=== PATIENT | female | born 1950 | race Caucasian/White ===

== ENCOUNTER 2016-08-26 17:46 | Inpatient (IN) | payer MEDICARE ==
[~2016-08-26] VITALS: Ht 152.4 cm; Wt 40.0 kg
[~2016-08-26 17:46] MED LIST: CARB1SUS J-TUBE; CELE200C PO; HUMI40KI SQ; OYST500T77 PO
--- NOTE | 2016-08-26 17:51 | PD ---
HPI Chief Complaint: upper and lower extremity weakness progressive over the last 2 weeks. 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 Patient was seen by Dr. Leon. Patient sustained a fall 3 months ago, and was seen at [facility], and was transported to [address] [place] [address]. At that time the patient was found to have a C2 fracture which was unclear if it was chronic or acute. At discharge from the hospital 2 weeks ago the patient was able to move all limbs and transfer to rehabilitation walking with a walker. Then 2 weeks ago patient had a "another spell", and can't move her arms or legs. Patient was evaluated by Dr. Leon and the physician medical claims assistant who recommended coming to the emergency department for further evaluation for her change in status. Patient now has weakness of both upper extremities and is unable to grasp, but is noted to be able to wiggle her toes. She is otherwise weak in all extremities. Patient is alert and oriented 4 but is a very soft talker and slow to answer due to her Parkinson's. Patient has bowel or bladder incontinence. Patient has a duepa pump which is for her Parkinson's disease. Patient has no known drug allergies. PFSH Past Medical History Arthritis: Yes (rheumatoid) Blood Disorders: No Cancer: No Cardiovascular Problems: No Endocrine: No Genitourinary: No Immune Disorder: Yes Musculoskeletal: Yes Neurologic: Yes Parkinson's Disease: Yes Psychiatric: No Respiratory: No Past Surgical History Joint Replacement: Yes (lt knee) Other Surgery: Yes (peg tube meds only) Social History Alcohol Use: No Tobacco Use: No Substance Use: No Allergies-Medications (Allergen,Severity, Reaction): Coded Allergies: No Known Allergies (Unverified , 04/14/16) Reported Meds & Prescriptions Reported Meds & Active Scripts Active Reported Dulcolax DR (Bisacodyl) 5 Mg Tabdr 5 Mg PO DAILY PRN Famotidine 20 Mg Tab 40 Mg PO HS Tylenol (Acetaminophen) 325 Mg Tab 650 Mg PO Q6H PRN Zinc Sulfate 220 Mg Tab 220 Mg PO DAILY Vitamin C (Ascorbic Acid) 500 Mg Tab 500 Mg PO DAILY Sinemet Cr (Carbidopa-Levodopa ER) 25-100 Mg Tab 1-2 Tab PO HS Loperamide (Loperamide HCl) 2 Mg Cap 2 Mg PO Q8HR PRN [place] (Hydrocodone-Acetaminophen) 5-325 mg Tab 1 Tab PO Q12HR PRN Valium (Diazepam) 2 Mg Tab 2-4 Mg PO BID PRN Vesicare (Solifenacin) 5 Mg Tab 5 Mg PO DAILY Mg217 Psoriasis Multi-Symptom Topical (Kingfisher Tar Extract) 2% Oint 1 Applic TOPICAL DAILY Stool Softener (Docusate Sodium) 100 Mg Cap 100 Mg PO DAILY PRN Fosamax (Alendronate Sodium) 70 Mg Tab 70 Mg PO WEEKLY Oyster-Vishnu 500 (Calcium) 500 Mg Tab 1,000 Mg PO DAILY Celebrex (Celecoxib) 200 Mg Cap 200 Mg PO BID Humira 2-Pack Inj (Adalimumab 2-Pack Inj) 40 Mg/0.8 Ml Syr 40 Mg SQ WEEKLY Duopa Enteral Infusion (Carbidopa-Levodopa Enteral Infusion) 4.63-20 Mg/Ml Susp 4.63-20 Mg J-TUBE DAILY Review of Systems Except as stated in HPI: all other systems reviewed are Neg General / Constitutional: No: Fever Eyes: No: Visual changes HENT: No: Headaches Cardiovascular: No: Chest Pain or Discomfort Respiratory: No: Shortness of Breath Gastrointestinal: No: Abdominal Pain Genitourinary: No: Dysuria Musculoskeletal: Positive: Limited ROM, No: Pain Skin: No Rash Neurologic: Positive: Weakness, Ataxia, Incontinence (chronically.), No: Paresthesia, Seizures, Sensory Disturbance Psychiatric: No: Depression Endocrine: No: Polydipsia Hematologic/Lymphatic: No: Easy Bruising Physical Exam Narrative GENERAL: Patient is alert and oriented and in no obvious distress. Patient has severe dystonic head posture to the left. She is wearing a soft collar. SKIN: Warm and dry. Normal color. Normal turgor. Lower extremities are somewhat cool to touch. Patient has a stage II decubitus ulcer present obvious signs of cellulitis. Wound culture is obtained. HEAD: Atraumatic. Normocephalic. EYES: Pupils equal and round. No scleral icterus. No injection or drainage. ENT: No nasal bleeding or discharge. Mucous membranes pink and moist. NECK: Trachea midline. Severe neck flexion. Patient is unable to move her neck on her own. This is chronic.. CARDIOVASCULAR: Regular rate and rhythm. No murmurs gallops or rubs. RESPIRATORY: No accessory muscle use. Clear to auscultation. Breath sounds equal bilaterally. GASTROINTESTINAL: Abdomen soft, non-tender, nondistended. Hepatic and splenic margins not palpable. G-tube is placed and appears in good condition. MUSCULOSKELETAL: Extremities without clubbing, cyanosis, or edema. No obvious deformities. NEUROLOGICAL: Awake and alert. No obvious cranial nerve deficits. Motor grossly within normal limits. Patient has no motion of bilateral upper extremities. States she has normal sensation but cannot move them. Lower extremities patient is able to wiggle her toes and push against pressure with plantar flexion 2 over 5. Normal speech. Patient is difficult to understand due to her Parkinson's disease. Patient has no obvious contractures or cogwheeling. She cannot lift arms and legs against gravity. PSYCHIATRIC: Appropriate mood and affect; insight and judgment normal. Data Data Last Documented VS Vital Signs Date Time Temp Pulse Resp B/P Pulse Ox O2 Delivery O2 Flow Rate FiO2 08/26/16 18:00 16 96 Room Air 08/26/16 17:57 97.9 81 128/[address] Cerv Spine W/O Contrast (08/26/16 18:17) Complete Blood Count With Diff (08/26/16 18:20) Comprehensive Metabolic Panel (08/26/16 18:20) Prothrombin Time / Inr (Pt) (08/26/16 18:20) Act Partial Throm Time (Ptt) (08/26/16 18:20) Magnesium (Mg) (08/26/16 18:20) Urinalysis - C+S If Indicated (08/26/16 18:20) Blood Culture (08/26/16 18:20) Wound Culture And Gram Stain (08/26/16 18:20) Lactic Acid (08/26/16 18:20) Mri C Spine W&W/O Contrast (08/26/16 ) Mri Screening Spine W&W/O Cont (08/26/16 ) Gadodiamide Pf Inj (Omniscan Pf Inj) (08/26/16 21:42) Labs Laboratory Tests Test 08/26/16 18:28 White Blood Count 7.5 TH/MM3 Red Blood Count 3.34 MIL/MM3 Hemoglobin 11.7 GM/DL Hematocrit 33.2 % Mean Corpuscular Volume 99.2 FL Mean Corpuscular Hemoglobin 35.1 PG Mean Corpuscular Hemoglobin 35.4 % Concent Red Cell Distribution Width 14.5 % Platelet Count 324 TH/MM3 Mean Platelet Volume 7.4 FL Neutrophils (%) (Auto) 56.8 % Lymphocytes (%) (Auto) 32.7 % Monocytes (%) (Auto) 8.0 % Eosinophils (%) (Auto) 1.9 % Basophils (%) (Auto) 0.6 % Neutrophils # (Auto) 4.2 TH/MM3 Lymphocytes # (Auto) 2.4 TH/MM3 Monocytes # (Auto) 0.6 TH/MM3 Eosinophils # (Auto) 0.1 TH/MM3 Basophils # (Auto) 0.0 TH/MM3 CBC Comment DIFF FINAL Differential Comment Prothrombin Time 12.2 SEC Prothromb Time International 1.1 RATIO Ratio Activated Partial 28.7 SEC Thromboplast Time Sodium Level 142 MEQ/L Potassium Level 4.0 MEQ/L Chloride Level 107 MEQ/L Carbon Dioxide Level 26.1 MEQ/L Anion Gap 9 MEQ/L Blood Urea Nitrogen 23 MG/DL Creatinine 0.44 MG/DL Estimat Glomerular Filtration 142 ML/MIN Rate Random Glucose 111 MG/DL Lactic Acid Level 1.6 mmol/L Calcium Level 7.9 MG/DL Magnesium Level 2.0 MG/DL Total Bilirubin 0.6 MG/DL Aspartate Amino Transf 17 U/L (AST/SGOT) Alanine Aminotransferase 7 U/L (ALT/SGPT) Alkaline Phosphatase 80 U/L Total Protein 5.5 GM/DL Albumin 2.4 GM/DL Last 24 hours Impressions [address] 08/26/167 Signed Impressions: Service Date/Time: Friday, August 26, 2016 18:36 - CONCLUSION: 1. Chronic appearing fracture through the upper dens with displacement of the fragment. 2. There are degenerative changes involving atlantoaxial joint normal likely secondary to pannus formation and rheumatoid arthritis with erosions and sclerosis. 3. Suboptimal exam due to the patient's kyphosis scoliosis and rotation. 4. Degenerative disc and degenerative joint changes. Enrique Damon MD [facility] Medical Decision Making Medical Screen Exam Complete: Yes Emergency Medical Condition: Yes Differential Diagnosis Patient with severe Parkinson's and neck dystonia with history of C2 fracture with upper and lower extremity weakness. Narrative Course Patient is medically stable at time of exam. Call was placed to Dr. Griffin to attempt to discuss the patient. Patient is discussed with Dr. Bradshaw. Patient was discussed with Dr. Griffin, who recommended a CT of the cervical spine as well as MRI with and without contrast of the cervical spine and Whole spine. Labs ordered including CBC, CMP, lactic acid, and wound culture from decubitus ulcers sent. Labs are essentially unremarkable. Wound cultures are pending. Last [address] Impressions [address] 08/26/167 Signed Impressions: Service Date/Time: Friday, August 26, 2016 18:36 - CONCLUSION: 1. Chronic appearing fracture through the upper dens with displacement of the fragment. 2. There are degenerative changes involving atlantoaxial joint normal likely secondary to pannus formation and rheumatoid arthritis with erosions and sclerosis. 3. Suboptimal exam due to the patient's kyphosis scoliosis and rotation. 4. Degenerative disc and degenerative joint changes. Enrique Damon MD MRI is still pending. [address] discussed with Dr[address] Griffin, the neurosurgeon and CT results are discussed. Dr. Griffin feels the patient needs to be admitted but is unsure that he couldn't do anything surgically for this patient, that she may actually be qualified for palliative care at this point based on the CT findings. He asked me to call the hospitalist to see if they will admit the patient, but stated that it they declined he would admit the patient. 2150 hrs. patient is discussed with Dr. Reeder who agrees to admit the patient to observation with consult to Dr. Griffin regarding her neuro surgical status. 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
[2016-08-26 17:57] VITALS: BP 128/90; PULSE 81; RESP 19; TEMP 97.9; O2SAT 97
[2016-08-26 18:37] LABS: AUTOMATED NEUTROPHIL # 4.2 TH/MM3 (1.8-7.7); BASOPHIL % 0.6 % (0.0-2.0); EOSINOPHIL # 0.1 TH/MM3 (0-0.4); EOSINOPHIL % 1.9 % (0.0-4.0); HEMATOCRIT 33.2 % (35.0-46.0); HEMO FLAGS DIFF FINAL; LYMPH % 32.7 % (9.0-44.0); LYMPHOCYTE # 2.4 TH/MM3 (1.0-4.8); MEAN CELL VOLUME 99.2 FL (80.0-100.0); MEAN CORPUSCULAR HEMOGLOBIN 35.1 PG (27.0-34.0); MEAN CORPUSCULAR HGB CONC 35.4 % (32.0-36.0); NEUT % 56.8 % (16.0-70.0); PLATELET COUNT 324 TH/MM3 (150-450); RED BLOOD COUNT 3.34 MIL/MM3 (4.00-5.30); RED CELL DISTRIBUTION WIDTH 14.5 % (11.6-17.2); WHITE BLOOD COUNT 7.5 TH/MM3 (4.0-11.0)
[2016-08-26 18:50] LABS: APTT (PATIENT) 28.7 SEC (24.3-30.1); INTERNATIONAL NORMALIZED RATIO 1.1 RATIO; PROTHROMBIN TIME - PATIENT 12.2 SEC (9.8-11.6)
[2016-08-26] MEDS ORDERED: TYLE325T PO (18:53)
[2016-08-26] MEDS ORDERED: VESI5TAB PO (18:53)
[2016-08-26] MEDS ORDERED: NORC5TAB PO (18:53)
[2016-08-26] MEDS ORDERED: DIAZ2 PO (18:53)
[2016-08-26] MEDS ORDERED: FOSA70TA PO (18:53)
[2016-08-26] MEDS ORDERED: STOO100C PO (18:53)
[2016-08-26] MEDS ORDERED: SINE25TA2 PO (18:53)
[2016-08-26] MEDS ORDERED: FAMO20TA2 PO (18:53)
[2016-08-26] MEDS ORDERED: ZINC220T PO (18:53)
[2016-08-26] MEDS ORDERED: VITA500T PO (18:53)
[2016-08-26] MEDS ORDERED: LOPE2CAP PO (18:53)
[2016-08-26] MEDS ORDERED: [UNRECOGNIZED DRUG - CODE] TOPICAL (18:53)
[2016-08-26] MEDS ORDERED: DULC5TAB PO (18:53)
[2016-08-26 19:02] LABS: ANION GAP 9 MEQ/L (5-15); AST (GOT) 17 U/L (15-37); BICARBONATE 26.1 MEQ/L (21.0-32.0); BLOOD UREA NITROGEN 23 MG/DL (7-18); CHLORIDE 107 MEQ/L (98-107); GLOMERULAR FILTRATION RATE 142 ML/MIN (>89); SODIUM (NA) 142 MEQ/L (136-145)
[2016-08-26 19:05] LABS: ALKALINE PHOSPHATASE 80 U/L (45-117); ALT (GPT) 7 U/L (10-53); TOTAL BILIRUBIN ADULT 0.6 MG/DL (0.2-1.0)
--- NOTE | 2016-08-26 21:10 | RADRPT ---
EXAM DATE/TIME: 08/26/2016 18:36 [facility] COMPARISON: No previous studies available for comparison. INDICATIONS : Bilateral upper and lower extremity weakness. RADIATION DOSE: 34.23 CTDIvol (mGy) MEDICAL HISTORY : Parkinson's. Rheumatoid arthritis. Spondylosis. SURGICAL HISTORY : None. ENCOUNTER: Initial ACUITY: 1 day PAIN SCALE: 7/10 LOCATION: neck TECHNIQUE: Volumetric scanning of the cervical spine was performed. Multiplanar reconstructions in the sagittal, coronal and oblique axial planes were performed. Using automated exposure control and adjustment o f the mA and/or kV according to patient size, radiation dose was kept as low as reasonably achievable to obtain optimal diagnostic quality images. FINDINGS: The patient is extremely kyphotic and rotated with the head tilted to the left limiting visualization with severe obloquy of the structures near the base of the skull. There is a chronic appearing fract ure through the upper dens with displacement of the fragment to the left and located anterior to the lower portion of the C2 vertebral body. Diffuse prominence of the soft tissues which could indicate p annus formation. There are degenerative changes and erosions. The C2 vertebral body is rotated approx imately 45 with respect to the C1 vertebral body. The skull base appears grossly intact. There are d egenerative disc changes at the C4 to 5 through C6-7 levels with disc space narrowing hypertrophic ch wilfredo. There is moderate osteopenia. The head is rotated making visualization of skull base difficult. The other vertebra appear grossly intact. There are degenerative changes involving the facet joints. CONCLUSION: 1. Chronic appearing fracture through the upper dens with displacement of the fragment. 2. There are degenerative changes involving atlantoaxial joint normal likely secondary to pannus form ation and rheumatoid arthritis with erosions and sclerosis. 3. Suboptimal exam due to the patient's kyphosis scoliosis and rotation. 4. Degenerative disc and degenerative joint changes. Enrique Damon MD on August 26, 2016 at 21:00 Board Certified Radiologist. This report was verified electronically.
[2016-08-26] MEDS ORDERED: GADODIAMIDE PF 287 MG/ML 5 ML VIAL (for RAD MRI) IV ONE (21:42)
[2016-08-26] MEDS ORDERED: DIAZEPAM 2 MG TAB PO PRN (22:15)
[2016-08-26] MEDS ORDERED: NALOXONE HCL 0.4 MG/ML AMP IV PRN (22:15)
[2016-08-26] MEDS ORDERED: SODIUM CHLORIDE 0.9% FLUSH 10 ML FLUSH IV FLUSH PRN (22:15)
[2016-08-26] MEDS ORDERED: ACETAMINOPHEN/HYDROcodone 325 MG/5 MG TAB PO PRN (22:15)
[2016-08-26] MEDS ORDERED: DOCUSATE SODIUM 100 MG CAP PO PRN (22:15)
[2016-08-26] MEDS ORDERED: BISACODYL EC 5 MG TABEC PO PRN (22:15)
--- NOTE | 2016-08-26 22:34 | RADRPT ---
EXAM DATE/TIME: 08/26/2016 20:47 [facility] COMPARISON: MRI CERVICAL SPINE W/O CONTRAST, April 16, 2016, 10:50. CT CERVICAL SPINE W/O CONTRAST, August 26, 2016, 18:36. INDICATIONS : Myelopathy. Abnormal cervical spine CT demonstrating a chronic appearing fracture of the dens. CONTRAST: 8 cc Omniscan (gadodiamide) IV MEDICAL HISTORY : Parkinson's disease rheumatoid arthritis. SURGICAL HISTORY : Left knee. ENCOUNTER: Subsequent ACUITY: 1 day PAIN SCORE: 8/10 LOCATION: neck TECHNIQUE: Multiplanar, multisequence MRI examination of the cervical spine was performed. FINDINGS: The patient is kyphotic, scoliotic and rotated with the head tilted to the left limiting visualizatio n. VERTEBRAE: The known fracture deformity of the dens seen on the CT is not well-visualized due to the kyphosis, s coliosis and rotation of the patient. The other vertebral bodies appear intact with no definite marro w edema. There is prominent soft tissue surrounding the dens which could indicate pannus likely secon dawna to the patient's known rheumatoid arthritis. ALIGNMENT: No evidence of subluxation. DISCS: Degenerative disc changes are again noted at C4-5, C5-6 and C6-7 levels with desiccation, disc space narrowing and hypertrophic change with spurring. CORD: Normal configuration and signal. POST FOSSA: The cerebellar tonsils are normal in position. POST-CONTRAST: No abnormal areas of enhancement are seen. C2-C3: The thecal sac has a normal configuration. There is no evidence of disc herniation or spinal canal stenosis. The neural foramina are patent bilaterally. C3-C4: The thecal sac has a normal configuration. There is no evidence of disc herniation or spinal canal s tenosis. The neural foramina are patent bilaterally. C4-C5: There is a mild disc osteophyte complex with mass effect on the anterior thecal sac and no definite m ass effect upon the cord. The neural foramina appear patent. C5-C6: There is a mild disc osteophyte complex with mass effect on the anterior thecal sac and no definite m ass effect upon the cord. The neural foramina appear patent. C6-C7: There is a mild disc osteophyte complex with mild mass effect on the anterior thecal sac and no defin ite mass effect upon the cord. C7-T1: The thecal sac has a normal configuration. There is no evidence of disc herniation or spinal canal s tenosis. The neural foramina are patent bilaterally. CONCLUSION: 1. The known fracture deformity of the dens seen on CT is not well-visualized on this exam due to the rotation, kyphosis and scoliosis. 2. The other vertebral bodies appear intact. 3. Degenerative disc change greatest at the C4-5, C5-6 and C6-7 levels with disc osteophyte complexes with no definite mass effect on the cord. Enrique Damon MD on August 26, 2016 at 22:24 Board Certified Radiologist. This report was verified electronically.
--- NOTE | 2016-08-26 22:43 | HHI.HP ---
[facility] Non[facility]Staff Admission Diagnosis New upper and lower Extremity weakness/Parkinsons Diagnoses: Chief Complaint: Unable to move extremities 2 weeks Travel History International Travel<30 Days: No Contact w/Intl Traveler <30 Da: No Traveled to Known Affected Are: No History of Present Illness This a 66-year-old female patient with a past medical history which includes pulmonary fibrosis, cervical dystonia, spasmodic torticollis, Parkinson's disease rheumatoid arthritis and hypertension. Patient sustained a fall 3 months ago, and was seen at [facility], and was transported to [facility]. At that time the patient was found to have a C2 fracture which was unclear if it was chronic or acute. At discharge from the hospital 2 weeks ago the patient was able to move all limbs and transfer to rehabilitation walking with a walker. Then 2 weeks ago patient had a "another spell", and can't move her arms or legs. Patient was evaluated by Dr. Leon and the physician senior care assistant who recommended coming to the emergency department for further evaluation for her change in status, there is concern regarding spinal cord injury. Patient now has weakness of both upper extremities and is unable to grasp or left bilateral arms or legs against gravity. Patient is alert and oriented but is a very soft talker and slow to answer. Patient only able to provide a minimal verbal information therefore information gathered from patient as well as prior charting. Of note Patient has bowel or bladder incontinence. Patient has a duepa pump which is for her Parkinson's disease. Patient has a c-collar in place Review of Systems ROS Limitations: Poor Historian Except as stated in HPI: all other systems reviewed are Neg Past Family Social History Past Medical History Rheumatoid arthritis Pulmonary fibrosis Past Surgical History Left knee replacement PEG/J tube placement for [place]-pump Reported Medications Dulcolax DR (Bisacodyl) 5 Mg Tabdr 5 Mg PO DAILY PRN Famotidine 20 Mg Tab 40 Mg PO HS Tylenol (Acetaminophen) 325 Mg Tab 650 Mg PO Q6H PRN Zinc Sulfate 220 Mg Tab 220 Mg PO DAILY Vitamin C (Ascorbic Acid) 500 Mg Tab 500 Mg PO DAILY Sinemet Cr (Carbidopa-Levodopa ER) 25-100 Mg Tab 1-2 Tab PO HS Loperamide (Loperamide HCl) 2 Mg Cap 2 Mg PO Q8HR PRN Limon (Hydrocodone-Acetaminophen) 5-325 mg Tab 1 Tab PO Q12HR PRN Valium (Diazepam) 2 Mg Tab 2-4 Mg PO BID PRN Vesicare (Solifenacin) 5 Mg Tab 5 Mg PO DAILY Mg217 Psoriasis Multi-Symptom Topical ([place] Tar Extract) 2% Oint 1 Applic TOPICAL DAILY Stool Softener (Docusate Sodium) 100 Mg Cap 100 Mg PO DAILY PRN Fosamax (Alendronate Sodium) 70 Mg Tab 70 Mg PO WEEKLY Oyster-Vishnu 500 (Calcium) 500 Mg Tab 1,000 Mg PO DAILY Celebrex (Celecoxib) 200 Mg Cap 200 Mg PO BID Humira 2-Pack Inj (Adalimumab 2-Pack Inj) 40 Mg/0.8 Ml Syr 40 Mg SQ WEEKLY Duopa Enteral Infusion (Carbidopa-Levodopa Enteral Infusion) 4.63-20 Mg/Ml Susp 4.63-20 Mg J-TUBE DAILY Allergies: Coded Allergies: No Known Allergies (Unverified , 04/14/16) Active Ordered Medications Current Medications Medications (Trade) Dose Ordered Sig/Judson Route Start Time Stop Time Status Last Admin (NS Flush) 2 ml UNSCH PRN IV FLUSH 08/26/16 22:15 (NS Flush) 2 ml BID IV FLUSH 08/27/16 09:00 (Narcan Inj) 0.4 mg UNSCH PRN IV 08/26/16 22:15 (Tylenol) 650 mg Q6H PRN PO 08/26/16 22:15 (Vitamin C) 500 mg DAILY PO 08/27/16 09:00 (Dulcolax Ec) 5 mg DAILY PRN PO 08/26/16 22:15 (Oscal) 1,000 mg DAILY PO 08/27/16 09:00 (Valium) 2 mg BID PRN PO 08/26/16 22:15 (Colace) 100 mg DAILY PRN PO 08/26/16 22:15 (Pepcid) 40 mg HS PO 08/27/16 21:00 (Limon 5-325 Mg) 1 tab Q12HR PRN PO 08/26/16 22:15 (Zinc Sulfate) 220 mg DAILY PO 08/27/16 09:00 Non-Formulary Medication DAILY J-TUBE 08/27/16 09:00 UNV (Sinemet Cr 50-200 Mg) 0.5 tab HS PO 08/27/16 21:00 (Detrol La) 2 mg DAILY PO 08/27/16 09:00 Family History Mother alive at 89 years old has history of colon cancer Social History Used to smoke cigarettes but quit in 1980s. Denies any alcohol abuse or drug abuse. Physical Exam Vital Signs Vital Signs Date Time Temp Pulse Resp B/P Pulse Ox O2 Delivery O2 Flow Rate FiO2 08/26/16 18:00 16 96 Room Air 08/26/16 17:57 97.9 81 19 128/90 97 Physical Exam GENERAL: This is an 66 year old female patient who appears older than stated age. very soft talker and slow to answer. C collar in place HEAD: Atraumatic. Normocephalic. No temporal or scalp tenderness. EYES: EOMI. No scleral icterus. No injection or drainage. NECK: Difficult to assess c-collar in place. Evident torticollis with chin nearly touching chest and head deviated towards the left CARDIOVASCULAR: Regular rate and rhythm without murmurs, gallops, or rubs. RESPIRATORY: Clear to auscultation. Breath sounds equal bilaterally. No wheezes , rales, or rhonchi. GASTROINTESTINAL: Abdomen soft, non-tender, nondistended. MUSCULOSKELETAL: Extremities without clubbing, cyanosis, or edema. No calf tenderness. Unable to move bilateral upper or lower extremities also unable to hold extremities against gravity NEUROLOGICAL: Awake and alert. Unable to move bilateral upper or lower extremities also unable to hold extremities against gravity. Soft whispered speech. Laboratory Laboratory Tests Test 08/26/16 18:28 White Blood Count 7.5 Red Blood Count 3.34 Hemoglobin 11.7 Hematocrit 33.2 Mean Corpuscular Volume 99.2 Mean Corpuscular Hemoglobin 35.1 Mean Corpuscular Hemoglobin 35.4 Concent Red Cell Distribution Width 14.5 Platelet Count 324 Mean Platelet Volume 7.4 Neutrophils (%) (Auto) 56.8 Lymphocytes (%) (Auto) 32.7 Monocytes (%) (Auto) 8.0 Eosinophils (%) (Auto) 1.9 Basophils (%) (Auto) 0.6 Neutrophils # (Auto) 4.2 Lymphocytes # (Auto) 2.4 Monocytes # (Auto) 0.6 Eosinophils # (Auto) 0.1 Basophils # (Auto) 0.0 CBC Comment DIFF FINAL Differential Comment Prothrombin Time 12.2 Prothromb Time International 1.1 Ratio Activated Partial 28.7 Thromboplast Time Sodium Level 142 Potassium Level 4.0 Chloride Level 107 Carbon Dioxide Level 26.1 Anion Gap 9 Blood Urea Nitrogen 23 Creatinine 0.44 Estimat Glomerular Filtration 142 Rate Random Glucose 111 Lactic Acid Level 1.6 Calcium Level 7.9 Magnesium Level 2.0 Total Bilirubin 0.6 Aspartate Amino Transf 17 (AST/SGOT) Alanine Aminotransferase 7 (ALT/SGPT) Alkaline Phosphatase 80 Total Protein 5.5 Albumin 2.4 Date/Time Procedure Status Source Growth 08/26/16 18:28 Gram Stain Received Wound Buttock Pending 08/26/16 18:28 Wound Culture Received Wound Buttock Pending 08/26/16 18:28 Aerobic Blood Culture Received Blood Peripheral Pending 08/26/16 18:28 Anaerobic Blood Culture Received Blood Peripheral Pending Result Diagram: 08/26/16182708/26/161827 Imaging Last Impressions Cervical Spine CT 08/26/161816 Signed Impressions: Service Date/Time: Friday, August 26, 2016 18:36 - CONCLUSION: 1. Chronic appearing fracture through the upper dens with displacement of the fragment. 2. There are degenerative changes involving atlantoaxial joint normal likely secondary to pannus formation and rheumatoid arthritis with erosions and sclerosis. 3. Suboptimal exam due to the patient's kyphosis scoliosis and rotation. 4. Degenerative disc and degenerative joint changes. Enrique Damon MD Assessment and Plan Assessment and Plan This a 66-year-old female patient with a past medical history which includes pulmonary fibrosis, cervical dystonia, spasmodic torticollis, Parkinson's disease rheumatoid arthritis and hypertension. Patient sustained a fall 3 months ago, and was seen at [facility], and was transported to [facility]. At that time the patient was found to have a C2 fracture which was unclear if it was chronic or acute. At discharge from the hospital 2 weeks ago the patient was able to move all limbs and transfer to rehabilitation walking with a walker. Then 2 weeks ago patient had a "another spell", and can't move her arms or legs. Acute neurological deficit Cervical spine CT reveals 1. Chronic appearing fracture through the upper dens with displacement of the fragment. 2. There are degenerative changes involving atlantoaxial joint normal likely secondary to pannus formation and rheumatoid arthritis with erosions and sclerosis. 3. Suboptimal exam due to the patient's kyphosis scoliosis and rotation. 4. Degenerative disc and degenerative joint changes. Cervical spine MRI reveals dependent fracture deformity of the dens seen in CT is not well visualized on this exam due to rotation kyphosis and scoliosis. The vertebral bodies appear intact. Degenerative disc change in greatest at C4 to C5, CA 5 to C6 and C6 to C7 levels with disc osteophyte complexes with no definitive mass effect on the cord 2130 hrs. ER provider discussed with Dr. Griffin, the neurosurgeon and CT results are discussed. Dr. Griffin feels the patient needs to be admitted but is unsure that he couldn't do anything surgically for this patient, that she may actually be qualified for palliative care at this point based on the CT findings. Continue c-collar Consult palliative care Cervical Dystonia with Intractable Neck Pain/Spasms: secondary to advanced Parkinson's disease, on chronic Sinemet tx and has duopa pump. Parkinson's Disease: chronic, the patient has a Carbidopa-Levodopa infusion pump , continue. Rheumatoid Arthritis: chronic, continue patient's Celebrex. Pulmonary Fibrosis: O2 as needed. Patient stable on room air. DVT Prophylaxis: SCDs and lovenox CODE STATUS: Full code Discussed with a provider, nursing inpatient Written by Edel Collins, acting as scribe for Dr. Reeder on 08/27/16 at 2243. This note was transcribed by scribe [ Edel Collins]. I, Dr. Alec Reeder personally performed the history, physical exam, and medical decision making; and confirmed the accuracy of the information in the transcribed note. Authenticated by Dr. Alec Reeder on 08/27/16 at 2243. Edel Collins Aug 26, 2016 22:43 Alec Reeder MD September 15, 2016 04:46
--- NOTE | 2016-08-26 23:21 | RADRPT ---
EXAM DATE/TIME: 08/26/2016 20:47 [facility] COMPARISON: SPINE LUMBAR LTD (AP & LAT), April 17, 2016, 11:25. MRI CERVICAL SPINE W & W/O CONTRAST, August, 20:47. SPINE THORACIC AP/LAT/SW (3VW), April 17, 2016, 11:24. INDICATIONS : Myelopathy. CONTRAST: 8 cc Omniscan (gadodiamide) IV MEDICAL HISTORY : Parkinson's. SURGICAL HISTORY : Left knee. ENCOUNTER: Subsequent ACUITY: 1 day PAIN SCORE: 8/10 LOCATION: neck TECHNIQUE: Screening MRI of the entire spinal axis was performed in the sagittal and axial planes. FINDINGS: There is a moderate scoliosis as well as kyphosis. Diffuse degenerative disc changes are noted with d isc space narrowing, desiccation and discogenic edema throughout the endplates. There is a mild retro listhesis of T11 on T12 with several millimeters. Anterior extradural defects are noted on the sagitt al images at the L3-4 and L4-5 levels. There are rounded marrow signal abnormalities in the T6 and T7 vertebral bodies which demonstrate ring enhancement after gadolinium administration. The T11 and T12 vertebral bodies are abnormal and demonstrate marrow edema an ill-defined low signal which a represe nt fracture deformities. The axial images demonstrate an annular disc bulge at the T4-5 level with flattening of the anterior thecal sac and no mass effect upon the cord. CONCLUSION: 1. Marrow abnormalities involving the T11 and T12 vertebral bodies representing compression fracture deformities of indeterminate age. 2. Rounded marrow abnormalities in the T6 and T7 vertebral bodies with ring enhancement. These are no nspecific and could represent Schmorl's nodes versus possible metastasis.3. Diffuse degenerative disc changes with scoliosis and kyphosis. Enrique Damon MD on August 26, 2016 at 23:04 Board Certified Radiologist. This report was verified electronically.
[2016-08-27] VITALS (7 sets, daily range): BP systolic 116–138; BP diastolic 68–85; PULSE 68–91; RESP 16–19; TEMP 97.8–98.4; O2SAT 95–98
[2016-08-27] MEDS ORDERED: LEVODOPA/CARBIDOPA 1 TAB TABCR PO PRN (01:45)
[2016-08-27] MEDS: SODIUM CHLORIDE 0.9% FLUSH 10 ML FLUSH IV FLUSH SCH ×2 (03:03→21:44)
[2016-08-27] MEDS ORDERED: LEVODOPA J-TUBE SCH (05:00)
[2016-08-27] MEDS ORDERED: CARBIDOPA J-TUBE SCH (05:00)
[2016-08-27 07:16] LABS: AUTOMATED NEUTROPHIL # 3.1 TH/MM3 (1.8-7.7); BASOPHIL % 0.4 % (0.0-2.0); EOSINOPHIL # 0.1 TH/MM3 (0-0.4); EOSINOPHIL % 2.1 % (0.0-4.0); HEMATOCRIT 32.5 % (35.0-46.0); HEMO FLAGS DIFF FINAL; LYMPH % 42.1 % (9.0-44.0); LYMPHOCYTE # 2.8 TH/MM3 (1.0-4.8); MEAN CELL VOLUME 100.5 FL (80.0-100.0); MEAN CORPUSCULAR HEMOGLOBIN 34.4 PG (27.0-34.0); MEAN CORPUSCULAR HGB CONC 34.2 % (32.0-36.0); NEUT % 46.4 % (16.0-70.0); PLATELET COUNT 289 TH/MM3 (150-450); RED BLOOD COUNT 3.23 MIL/MM3 (4.00-5.30); RED CELL DISTRIBUTION WIDTH 14.8 % (11.6-17.2); WHITE BLOOD COUNT 6.7 TH/MM3 (4.0-11.0)
[2016-08-27 07:26] LABS: POTASSIUM 3.8 MEQ/L (3.5-5.1)
--- NOTE | 2016-08-27 08:44 | HHI.PR ---
Subjective Remarks Follow-up for acute neurological deficit, C2 fracture. The patient is requesting her Sinemet be restarted. She is normally on a carbidopalevodopa pump, however she does not have the medication with her and no one is available to provide this medication to the pharmacy. She states her son is in the hospital. Discussed with pharmacy, plan to give the patient by mouth medications, patient reports no difficulty swallowing. The patient has continued bilateral upper extremity paralysis and bilateral lower extremity weakness. She denies any pain. Denies any other medical complaints. Vital signs reviewed, stable. Objective Vitals Vital Signs Date Time Temp Pulse Resp B/P Pulse Ox O2 Delivery O2 Flow Rate FiO2 08/27/16 08:28 74 19 128/83 95 08/27/16 06:00 98.4 68 16 117/68 97 08/26/16 18:00 16 96 Room Air 08/26/16 17:57 97.9 81 19 128/90 97 Result Diagram: 08/27/16 0622 08/27/1622 Imaging Last Impressions Cervical Spine CT 08/26/16 1817 Signed Impressions: Service Date/Time: Friday, August 26, 2016 18:36 - CONCLUSION: 1. Chronic appearing fracture through the upper dens with displacement of the fragment. 2. There are degenerative changes involving atlantoaxial joint normal likely secondary to pannus formation and rheumatoid arthritis with erosions and sclerosis. 3. Suboptimal exam due to the patient's kyphosis scoliosis and rotation. 4. Degenerative disc and degenerative joint changes. Enrique Damon MD Entire Spine MRI 08/26/16 0000 Signed Impressions: Service Date/Time: Friday, August 26, 2016 20:47 - CONCLUSION: 1. Marrow abnormalities involving the T11 and T12 vertebral bodies representing compression fracture deformities of indeterminate age. 2. Rounded marrow abnormalities in the T6 and T7 vertebral bodies with ring enhancement. These are nonspecific and could represent Schmorl's nodes versus possible metastasis. 3. Diffuse degenerative disc changes with scoliosis and kyphosis. Enrique Damon MD Cervical Spine MRI 08/26/16 0000 Signed Impressions: Service Date/Time: Friday, August 26, 2016 20:47 - CONCLUSION: 1. The known fracture deformity of the dens seen on CT is not well-visualized on this exam due to the rotation, kyphosis and scoliosis. 2. The other vertebral bodies appear intact. 3. Degenerative disc change greatest at the C4-5, C5-6 and C6-7 levels with disc osteophyte complexes with no definite mass effect on the cord. Enrique Damon MD Objective Remarks GENERAL: Well-nourished, well-developed elderly female patient in [facility]. SKIN: Warm and dry. No rash. HEENT: Normocephalic. Atraumatic. Pupils equal and round.Mucous membranes pink and moist. NECK: Torticollis with chin touching touching chest and head turned to the left. CARDIOVASCULAR: Regular rate and rhythm. S1, S2 noted. No murmur appreciated. RESPIRATORY: No accessory muscle use. Clear to auscultation. Breath sounds equal bilaterally. GASTROINTESTINAL: Abdomen soft, non-tender, nondistended. Normoactive bowel sounds x4. MUSCULOSKELETAL: No obvious deformities. Extremities without clubbing, cyanosis , or edema. NEUROLOGICAL: Awake and alert. No obvious cranial nerve deficits. Bilateral upper extremity paralysis, unable to move arms. Bilateral lower extremity weakness 2/5, able to wiggle toes. Very soft spoken. PSYCHIATRIC: Appropriate mood and affect; insight and judgment normal. Medications and IVs Current Medications Medications (Trade) Dose Ordered Sig/Judson Route Start Time Stop Time Status Last Admin (NS Flush) 2 ml UNSCH PRN IV FLUSH 08/26/16 22:15 (NS Flush) 2 ml BID IV FLUSH 08/27/16 09:00 08/27/16 03:03 (Narcan Inj) 0.4 mg UNSCH PRN IV 08/26/16 22:15 (Tylenol) 650 mg Q6H PRN PO 08/26/16 22:15 (Vitamin C) 500 mg DAILY PO 08/27/16 09:00 08/27/16 10:42 (Dulcolax Ec) 5 mg DAILY PRN PO 08/26/16 22:15 (Oscal) 1,000 mg DAILY PO 08/27/16 09:00 08/27/16 10:42 (Valium) 2 mg BID PRN PO 08/26/16 22:15 (Colace) 100 mg DAILY PRN PO 08/26/16 22:15 (Pepcid) 40 mg HS PO 08/27/16 21:00 ([place] 5-325 Mg) 1 tab Q12HR PRN PO 08/26/16 22:15 (Zinc Sulfate) 220 mg DAILY PO 08/27/16 09:00 Patient Own Medication PT OWN MED: Suspensi... Q16H J-TUBE 08/27/16 05:00 Hold (Detrol La) 2 mg DAILY PO 08/27/16 09:00 (Lovenox Inj) 40 mg Q24H SQ 08/27/16 09:00 Patient Own Medication PT OWN MED: SINEMET... HS PO 08/27/16 21:00 Future Hold (Sinemet 25-100 Mg) 1 tab Q4HR PRN PO 08/27/16 09:15 08/27/16 10:41 (Sinemet Cr 50-200 Mg) 3 tab Q8HR PO 08/27/16 14:00 08/27/16 10:45 Urinary Catheter: No Vascular Central Line Catheter: No A/P Assessment and Plan 66-year-old female patient with a past medical history which includes pulmonary fibrosis, cervical dystonia, spasmodic torticollis, Parkinson's disease rheumatoid arthritis and hypertension. Patient sustained a fall 3 months ago, and [facility], and was transported to [facility]. At that time the patient was found to have a C2 fracture which was unclear if it was chronic or acute. At discharge from the hospital 2 weeks ago the patient was able to move all limbs and transfer to rehabilitation walking with a walker. Then 2 weeks ago patient had a "another spell", and can't move her arms or legs. Acute neurological deficit: C-spine CT reveals Chronic appearing fracture through the upper dens with displacement of the fragment; degenerative changes involving atlantoaxial joint normal likely secondary to pannus formation and rheumatoid arthritis with erosions and sclerosis. C-spine MRI reveals dependent fracture deformity of the dens seen in CT is not well visualized on this exam due to rotation kyphosis and scoliosis. The vertebral bodies appear intact. Degenerative disc change in greatest at C4 to C5, CA 5 to C6 and C6 to C7 levels with disc osteophyte complexes with no definitive mass effect on the cord. -ER provider discussed with Dr. Griffin, the neurosurgeon who feels the patient needs to be admitted but is unsure that he couldn't do anything surgically for this patient -Consult palliative care, appreciate recommendations -neuro checks Parkinson's Disease with Cervical Dystonia, Intractable Neck Pain/Spasms: chronic, the patient has a Carbidopa-Levodopa infusion pump however unable to be restarted as noone available to bring pump medications into hospital. -discussed with pharmacy, will give Carbidopa-Levodopa 50-200mg po 3 tabs tid and 1 tab q4h prn -neurology consulted Rheumatoid Arthritis: chronic, continue patient's Celebrex. Pulmonary Fibrosis: O2 as needed. Patient stable on room air. DVT Prophylaxis: SCDs and lovenox CODE STATUS: Full code Written by Flora Jean, acting as scribe for Dr. Hsu on 08/27/16 at 08:44. All or portions of this note were transcribed by scribe JOMAR Seymour. I , Dr. Akash Hsu personally performed the history, physical exam, and medical decision making; and confirmed the accuracy of the information in the transcribed note. Authenticated by Dr. Akash Hsu on 08/28/16 at 00:11. Flora Jean PA-C Aug 27, 2016 08:44 Natalee Hsu DO Aug 28, 2016 00:11
[2016-08-27] MEDS: ZINC SULFATE 220 MG CAP PO SCH (09:00)
[2016-08-27] MEDS ORDERED: LEVODOPA/CARBIDOPA 1 TAB TABCR PO SCH ×4 (09:00→21:00)
[2016-08-27] MEDS: ENOXAPARIN SODIUM 40 MG/0.4 ML SYRINGE SQ SCH (09:00)
[2016-08-27] MEDS: TOLTERODINE TARTRATE 2 MG CAP LA PO SCH (09:00)
[2016-08-27] MEDS ORDERED: CARBIDOPA/LEVODOPA 25 MG/100 MG TAB PO PRN (09:15)
[2016-08-27] MEDS: ASCORBIC ACID 500 MG TAB PO SCH (10:42)
[2016-08-27] MEDS: CALCIUM CARBONATE 1.25 GM (CA 500 MG) TAB PO SCH (10:42)
--- NOTE | 2016-08-27 11:27 | PD.CONS ---
Consult Service Palliative Care Consult Requested By MD Lilli Primary Care Physician Bhavani Crenshaw MD Reason for Consultation a. To assist with evaluation and management of symptoms including:pain, weakness b. To assist medical decision maker(s) with: better understanding of current medical conditions; weighing benefits/burdens of medical treatment options; making medical treatment decisions. (Zuleyka Mariee) HPI History of Present Illness This is a 66-year-old female with history of Parkinson's disease, spasmodic torticollis, scoliosis and kyphosis, dysfunction, chronic neck pain and anterior tc related to cervical dystonia/Parkinson's disease as well as spondylosis of myelopathy in the cervical region, pulmonary fibrosis who presented to the emergency department on 08/26/2016 from [facility] where she is seeing Dr. Leon She is a resident of a nursing facility in [place]. She fell 3 months ago at her son's home but 2 days later had no improvements. She went to [facility], then [facility] and was found to have a C2 fracture. It is unclear if this is a chronic or acute fracture in light of her severe DDD. She is known to have kyphotic scoliosis rotation resulting in severe neck flexion. After discharge from the hospital records show she was able to move all limbs, was transferred to rehabilitation and was walking with a walker. 2 weeks ago she had "another spell" and was able unable to move her arms and legs. On admission to the emergency department. She presented with weakness of both upper extremities as and is unable to grasp. She is noted to be able to wiggle her toes and move her feet. She otherwise is weak in all extremities. She is extremely frail and cachectic. She has dysphonia, likely related to the Parkinson's and she is difficult to understand. Prior history from March 2016. It is documented in the clinical record that she was ambulatory, able to manage her needs and direct her care. I was able to talk with her son, Pb, who tells me that 3 months ago. She was able to ambulate with a walker. He noticed her decline in being able to use her arms and legs about one month ago with increased weakness. She was needing help with feeding, although would eat well. She does not wish to access the port on the J-tube for feeding. She has been very assertive in stating her goals of care through her clinical history. She does have a living well and he will bring it in. However, she wishes to remain a full code at this time. I did explain to him that if CPR were to be performed. There is certainty that she would incur fractures to her rib cage and likely further fractures to her spine. Efforts to intubate her would result in fractures to her cervical spine. Pb also relays that she wants to have a understanding of what is going on and why she is not able to move her arms and her legs. He feels that she anticipates healing and getting better and being ambulatory again. Feels that direct communication from the medical team would help her to understand the circumstances. (Zuleyka Mariee) Review of Systems ROS Limitations: Clinical Condition, Speech Impaired (she has dysphonia due to Parkinson's. Voice is very soft and difficult to understand) Constitutional: COMPLAINS OF: Fatigue, Generalized weakness Ears, nose, mouth, throat: DENIES: Vertigo Respiratory: DENIES: Cough, Wheezing Cardiovascular: DENIES: Chest pain, Palpitations Gastrointestinal: COMPLAINS OF: Difficulty Swallowing (carried foods) Genitourinary: COMPLAINS OF: Urinary incontinence Musculoskeletal: COMPLAINS OF: Joint pain, Joint Swelling Integumentary: COMPLAINS OF: Rash (on her right upper thigh), Non-healing sores (coccyx wound) Hematologic/Lymphatics: COMPLAINS OF: Bruising Immunologic/Allergic: COMPLAINS OF: Urticaria Neurologic: COMPLAINS OF: Abnormal gait, Localized weakness, Speech Problems, Tremor, Poor Balance (Zuleyka Mariee) Past Family Social History Coded Allergies: No Known Allergies (Unverified , 04/14/16) Past Medical History Rheumatoid arthritis Pulmonary fibrosis Past Surgical History Left knee replacement PEG/J tube placement for [place]-pump Reported Medications Sinemet 90642 tablets at bedtime. Sinemet 09823 milligrams 2 tablets when necessary. Santil ointment to 50 units per gram to coccyx every shift. Loperamide 2 mg-one tablet every 8 hours when necessary Adalimumab pen 40 mg/0.8 mL's inject 1 time weekly on Thursday for RA Famotidine 20 mg 2 tablets daily Celebrex 200 mg 1 capsule twice a day Aspirin 81 mg 2 tablets daily. Duopa Suspension 4.63-20 Bisacodyl tablets 5 mg as needed. Vitamin C 500 daily, zinc 220 daily, multivitamin 1 daily Current Medications Medications (Trade) Dose Ordered Sig/Judson Route Start Time Stop Time Status Last Admin (NS Flush) 2 ml UNSCH PRN IV FLUSH 08/26/16 22:15 (NS Flush) 2 ml BID IV FLUSH 08/27/16 09:00 08/27/16 03:03 (Narcan Inj) 0.4 mg UNSCH PRN IV 08/26/16 22:15 (Tylenol) 650 mg Q6H PRN PO 08/26/16 22:15 (Vitamin C) 500 mg DAILY PO 08/27/16 09:00 (Dulcolax Ec) 5 mg DAILY PRN PO 08/26/16 22:15 (Oscal) 1,000 mg DAILY PO 08/27/16 09:00 (Valium) 2 mg BID PRN PO 08/26/16 22:15 (Colace) 100 mg DAILY PRN PO 08/26/16 22:15 (Pepcid) 40 mg HS PO 08/27/16 21:00 ([place] 5-325 Mg) 1 tab Q12HR PRN PO 08/26/16 22:15 (Zinc Sulfate) 220 mg DAILY PO 08/27/16 09:00 Patient Own Medication PT OWN MED: Suspensi... Q16H J-TUBE 08/27/16 05:00 Hold (Detrol La) 2 mg DAILY PO 08/27/16 09:00 (Lovenox Inj) 40 mg Q24H SQ 08/27/16 09:00 Patient Own Medication PT OWN MED: SINEMET... HS PO 08/27/16 21:00 Future Hold (Sinemet 25-100 Mg) 1 tab Q4HR PRN PO 08/27/16 09:15 (Sinemet Cr 50-200 Mg) 3 tab Q8HR PO 08/27/16 14:00 Family History Father is alive. Mother 89 years old with colon cancer Substance Use Tobacco: Prior history of tobacco use Alcohol: Denies Prescription med abuse: Denies Illicits: Denies Psychosocial History She is . Lives in [facility]. Has 4 children. Pb is healthcare surrogate. Spiritual/Cultural Factors Sikh (Zuleyka Mariee) Living Will: Completed, but not made available Health Care Surrogate(s): Pb Avalos [phone] (KodiZuleyka JOHNSON) Physical Exam Vital Signs Date Time Temp Pulse Resp B/P Pulse Ox O2 Delivery O2 Flow Rate FiO2 08/27/16 08:28 74 19 128/83 95 08/27/16 06:00 98.4 68 16 117/68 97 08/26/16 18:00 16 96 Room Air 08/26/16 17:57 97.9 81 19 128/90 97 Exam CONSTITUTIONAL/GENERAL: This is an very frail and cachectic woman, in no apparent distress. TUBES/LINES/DRAINS: J-tube to midline abdomen SKIN: She has a patchy blister type rash to her right upper thigh. She has a significant bruise to her left fatima area. It is reported that she has a coccyx wound, skin is very dry HEAD: Atraumatic. Normocephalic. EYES: Pupils equal and round and reactive. Extraocular motions intact. No scleral icterus. No injection or drainage. Fundi not examined. ENT: Hearing grossly normal. Nose without bleeding or purulent drainage. Throat without visible erythema, exudates, masses, or lesions. NECK: She has severe neck flexion to the left and is unable to move her head independently, Trachea midline. Supple, nontender. No palpable thyroid enlargement or nodularity. CARDIOVASCULAR: Regular rate and rhythm without murmurs, gallops, or rubs. No JVD. Peripheral pulses symmetric. RESPIRATORY/CHEST: Symmetric, unlabored respirations. Clear to auscultation. Breath sounds equal bilaterally. No wheezes, rales, or rhonchi. GASTROINTESTINAL: Abdomen soft, non-tender, nondistended. Scaphoid No hepato- splenomegaly, or palpable masses. No guarding. Bowel sounds present. GENITOURINARY: Without palpable bladder distension. MUSCULOSKELETAL: She has changes noted to her joints from rheumatoid arthritis Extremities without clubbing, cyanosis, or edema. No joint tenderness or effusion noted. No calf tenderness. No mottling or clubbing. LYMPHATICS: No palpable cervical or supraclavicular adenopathy. NEUROLOGICAL: Awake and alert. She attempts to speak, but her voice is very, very soft and she is very difficult to understand. She is reported to be oriented times 3. She is able to follow commands to the limits of her neurologic capacitywe will her toes move her feet. She is unable to move either arm. Both arms are flaccid PSYCHIATRIC: No obvious anxiety/depression. no apparent hallucinations or other psychotic thought process. (Zuleyka Mariee) Diagnostic Tests Laboratory Laboratory Tests Test 08/26/16 08/27/16 18:28 06:22 White Blood Count 7.5 TH/MM3 6.7 TH/MM3 (4.0-11.0) (4.0-11.0) Red Blood Count 3.34 MIL/MM3 3.23 MIL/MM3 (4.00-5.30) (4.00-5.30) Hemoglobin 11.7 GM/DL 11.1 GM/DL (11.6-15.3) (11.6-15.3) Hematocrit 33.2 % 32.5 % (35.0-46.0) (35.0-46.0) Mean Corpuscular Volume 99.2 FL 100.5 FL (80.0-100.0) (80.0-100.0) Mean Corpuscular Hemoglobin 35.1 PG 34.4 PG (27.0-34.0) (27.0-34.0) Mean Corpuscular Hemoglobin 35.4 % 34.2 % Concent (32.0-36.0) (32.0-36.0) Red Cell Distribution Width 14.5 % 14.8 % (11.6-17.2) (11.6-17.2) Platelet Count 324 TH/MM3 289 TH/MM3 (150-450) (150-450) Mean Platelet Volume 7.4 FL 7.5 FL (7.0-11.0) (7.0-11.0) Neutrophils (%) (Auto) 56.8 % 46.4 % (16.0-70.0) (16.0-70.0) Lymphocytes (%) (Auto) 32.7 % 42.1 % (9.0-44.0) (9.0-44.0) Monocytes (%) (Auto) 8.0 % (0.0-8.0) 9.0 % (0.0-8.0) Eosinophils (%) (Auto) 1.9 % (0.0-4.0) 2.1 % (0.0-4.0) Basophils (%) (Auto) 0.6 % (0.0-2.0) 0.4 % (0.0-2.0) Neutrophils # (Auto) 4.2 TH/MM3 3.1 TH/MM3 (1.8-7.7) (1.8-7.7) Lymphocytes # (Auto) 2.4 TH/MM3 2.8 TH/MM3 (1.0-4.8) (1.0-4.8) Monocytes # (Auto) 0.6 TH/MM3 0.6 TH/MM3 (0-0.9) (0-0.9) Eosinophils # (Auto) 0.1 TH/MM3 0.1 TH/MM3 (0-0.4) (0-0.4) Basophils # (Auto) 0.0 TH/MM3 0.0 TH/MM3 (0-0.2) (0-0.2) CBC Comment DIFF FINAL DIFF FINAL Differential Comment Prothrombin Time 12.2 SEC (9.8-11.6) Prothromb Time International 1.1 RATIO Ratio Activated Partial 28.7 SEC Thromboplast Time (24.3-30.1) Sodium Level 142 MEQ/L 144 MEQ/L (136-145) (136-145) Potassium Level 4.0 MEQ/L 3.8 MEQ/L (3.5-5.1) (3.5-5.1) Chloride Level 107 MEQ/L 108 MEQ/L (98-107) (98-107) Carbon Dioxide Level 26.1 MEQ/L 30.0 MEQ/L (21.0-32.0) (21.0-32.0) Anion Gap 9 MEQ/L (5-15) 6 MEQ/L (5-15) Blood Urea Nitrogen 23 MG/DL (7-18) 22 MG/DL (7-18) Creatinine 0.44 MG/DL 0.43 MG/DL (0.50-1.00) (0.50-1.00) Estimat Glomerular Filtration 142 ML/MIN 146 ML/MIN Rate (>89) (>89) Random Glucose 111 MG/DL 93 MG/DL (74-106) (74-106) Lactic Acid Level 1.6 mmol/L (0.4-2.0) Calcium Level 7.9 MG/DL 8.1 MG/DL (8.5-10.1) (8.5-10.1) Magnesium Level 2.0 MG/DL (1.5-2.5) Total Bilirubin 0.6 MG/DL (0.2-1.0) Aspartate Amino Transf 17 U/L (15-37) (AST/SGOT) Alanine Aminotransferase 7 U/L (10-53) (ALT/SGPT) Alkaline Phosphatase 80 U/L (45-117) Total Protein 5.5 GM/DL (6.4-8.2) Albumin 2.4 GM/DL (3.4-5.0) (Zuleyka Mariee) Result Diagram: 08/27/16 0622 08/27/16 0622 Microbiology Microbiology Date/Time Procedure Status Source Growth 08/26/16 18:00 Aerobic Blood Culture Received Blood Peripheral Pending 08/26/16 18:00 Anaerobic Blood Culture Received Blood Peripheral Pending 08/26/16 18:28 Aerobic Blood Culture Received Blood Peripheral Pending 08/26/16 18:28 Anaerobic Blood Culture Received Blood Peripheral Pending 08/26/16 18:28 Gram Stain - Final Resulted Wound Buttock 08/26/16 18:28 Wound Culture Resulted Wound Buttock Pending Imaging Last 72 hours Impressions C[address]ical Spine CT 08/26/16 1817 Signed Impressions: Service Date/Time: Friday, August 26, 2016 18:36 - CONCLUSION: 1. Chronic appearing fracture through the upper dens with displacement of the fragment. 2. There are degenerative changes involving atlantoaxial joint normal likely secondary to pannus formation and rheumatoid arthritis with erosions and sclerosis. 3. Suboptimal exam due to the patient's kyphosis scoliosis and rotation. 4. Degenerative disc and degenerative joint changes. Enrique Damon MD Entire Spine MRI 08/26/16 0000 Signed Impressions: Service Date/Time: Friday, August 26, 2016 20:47 - CONCLUSION: 1. Marrow abnormalities involving the T11 and T12 vertebral bodies representing compression fracture deformities of indeterminate age. 2. Rounded marrow abnormalities in the T6 and T7 vertebral bodies with ring enhancement. These are nonspecific and could represent Schmorl's nodes versus possible metastasis. 3. Diffuse degenerative disc changes with scoliosis and kyphosis. Enrique Damon MD Cervical Spine MRI 08/26/16 0000 Signed Impressions: Service Date/Time: Friday, August 26, 2016 20:47 - CONCLUSION: 1. The known fracture deformity of the dens seen on CT is not well-visualized on this exam due to the rotation, kyphosis and scoliosis. 2. The other vertebral bodies appear intact. 3. Degenerative disc change greatest at the C4-5, C5-6 and C6-7 levels with disc osteophyte complexes with no definite mass effect on the cord. Enrique Damon MD (Zuleyka Mariee) Patient/Family Conference Present at Family Conference: morris Ambriz Family Conference Location: Telephone Issues Discussed: * Palliative care role, purpose, approach * Additional medical, psychosocial, and spiritual history * Patients general health, functional status, and cognitive changes in the months leading up to the current hospitalization * Patient/family understanding of the current medical problems * Patient/family understanding of prognosis * Patients goals of care as best understood from advance directives and/or conversations and/or values * Current medical treatment options and benefits/burdens of those options * Likely scenarios comparing ongoing aggressive care with a transition to comfort measures only * Questions answered to the best of my ability * Palliative care contact information provided (Zuleyka Mariee) Assessment and Plan Disease Oriented Problem List: (1) Chronic pain (2) Rheumatoid arthritis (3) Parkinsons disease (4) C2 cervical fracture (5) Muscle weakness of extremity Symptom Scale: (1) Chronic pain 0-10 Scale: Unable to quantify Comment: Due to her dysphonia. It is difficult for her to adequately communicate her pain needs at this time. However, she has severe degenerative disease as well as rheumatoid arthritis (2) Anxiety Pertinent Non-Medical Issues Psychosocial: , has 4 children, son Pb is healthcare surrogate, lives in [facility] Spiritual: Sikh beliefs Legal: It is reported from prior records that she has a living well. However, it is unavailable at this time. Will contact her son Pb and obtain the document Ethical issues impacting care: Important Contacts Pb Dubose [phone] Prognosis Prognosis is guarded in light of her rather significant physical decline. She is quite frail and cachectic. Her current albumin level is 2.4 At this point, she is bedridden. She has a coccyx wound that is noted on records from the skilled facility. She is unable to feed herself or manage her needs. We'll need to determine goals of care with her son. Plan Decision Maker: Son, Pb Avalos [phone] Code Status: Full code at this time. However, there is report of a living will Family Discussion: Spoke with son, Pb via telephone. He tells me that she had been walking and living in his home up until about 3 months ago. She had incurred a fall and his residence and after that time started to develop weakness in her legs. It was at that time she went to [facility] for further evaluation and was found to have a C2 fracture. At that time. He states that he has most dramatically noticed a loss in her lamina function in the last month. She is having great difficulty with feeding herself. As long as she is fed she will do well. He indicates that she does not wish to access the port on the J-tube for feeding. He states that he has paperwork indicating him as decision maker and that she has a living will. I asked that he bring documents with him the next time he comes into the hospital. Discussed CODE STATUS. He states that she desires to be a full code. I did explain to him that in light of her rather frail state. She would very certainly incur thoracic fractures. He is understanding of that. However, it was her stated desire to be a full code. He states that he may be able to try to talk to her and explain it further to her. However, at this time. She remains FULL CODE STATUS. He tells me that one of the questions that she has had is trying to understand why she is unable to move her limbs at this point in time. He feels that further education from the medical team would be best served in explaining that to her as he has had no luck with it. He has watched her decline progressively over the last 6 months. We We briefly discussed hospice as an option. He is agreeable to it. However, he does not believe that she would be open to it as she is wanting to return home with him. He tells me that he is not able to care for her at home. He has medical disability as well and his is currently in the ICU at another hospital with a chronic illness. Symptoms: Pain, Anxiety Palliative care phone number provided - will follow during hospital stay. ( Zuleyka Mariee) Thank you for the opportunity to participate in the care of Ms. Mendieta. (Zuleyka Mariee) Collaborating MD Comments . Chart reviewed. Cased discussed with palliative care PET GROOMER. Above PET GROOMER note reviewed and I concur. . (Marciano Balderas MD) Zuleyka Mariee Aug 27, 2016 11:27 Marciano Balderas MD October 13, 2016 14:56
--- NOTE | 2016-08-27 16:16 | MB ---
cc: BRYN HICKMAN MD DATE OF CONSULTATION: 08/27/2016 REASON FOR CONSULTATION History of Parkinson's disease, upper and lower extremity weakness, spasmodic torticollis. HISTORY OF PRESENT ILLNESS Ms. Mendieta is a 66-year-old female with past medical history of pulmonary fibrosis, cervical dystonia, spasmodic torticollis, Parkinson's disease, rheumatoid arthritis and hypertension. The patient speaks in a soft voice and she is not a good historian, hence the medical information is obtained from the medical records and from the nursing staff. The patient had sustained a fall 3 months ago. She was seen at another hospital and then she was transferred to [facility]. At that time the patient was found to have a C2 fracture which was unclear if it was chronic or acute. As per medical records upon the discharge from the hospital 2 weeks ago the patient was able to move all limbs and transferred to rehabilitation walking with a walker. Then 2 weeks later the patient had another spell where she could not move her arms or legs. The patient has been evaluated by Dr. Leon and PA who recommended coming to the emergency room at [facility] for further evaluation and concern regarding spinal cord injury. During the encounter the patient speaks in a soft voice with a prominent spasmodic torticollis with a head tilt to the left with quadriparesis, Chavez catheter in. The patient has bowel and bladder incontinence and the patient was on Duopa pump, carbidopa-levodopa for the Parkinson's disease. REVIEW OF SYSTEMS Unable to obtain, poor historian but from medical records a 12-point review of systems is negative except for what is stated in the HPI. PAST MEDICAL HISTORY 1. Rheumatoid arthritis. 2. Pulmonary fibrosis. 3. Hypertension. 4. Parkinson's disease. 5. Cervical dystonia. PAST SURGICAL HISTORY 1. Left knee replacement. 2. PEG tube placement for Duopa pump. MEDICATIONS 1. Dulcolax. 2. Famotidine. 3. Tylenol. 4. Zinc sulfate. 5. Vitamin C. 6. Sinemet. 7. Carbidopa-levodopa extended-release 25 mg/100 mg. 8. Loperamide. 9. [place]. 10. Valium. 11. Vesicare. 12. Stool softener. 13. Fosamax. 14. Celebrex. 15. Humira. 16. Dopa enteral infusion. ALLERGIES No known allergies. FAMILY HISTORY Mother alive 89 years old, history of colon cancer. SOCIAL HISTORY Ex-smoker, quit in the 1980s, denies any alcohol abuse or drug abuse. PHYSICAL EXAMINATION GENERAL: A frail female, appears older than her stated age. Talks softly with C-collar in place. HEENT: Head is forcefully tilted to the left with spasmodic torticollis. Cachetic. Intact hearing. Intact vision. CARDIOVASCULAR: Regular rate and rhythm. RESPIRATORY: Clear to auscultation. No wheezes. MUSCULOSKELETAL: Extremities with bilateral hand swelling. No cyanosis, unable to move extremities. NEUROLOGIC: Awake, alert, oriented to time, person and place. Speaks in a very soft voice. Evident spasmodic torticollis with a head tilt to the left. Extreme loss of muscle bulk throughout the body with extensive wasting of the neck muscles, pectoral muscles, thigh and lower extremity muscles. No visible fasciculations. Grade 0/5 bilateral upper extremities, unable to move extremities. Could not make a hand fist, elbow flexion, hyporeflexic tone in all four extremities, unable to move her lower extremities grade 0/5. Reflexes 1+ bilateral symmetrical throughout. Left lower extremity internally rotated with mild swelling in the ankles. Plantars left is mute, right is upgoing with high arched feet. No abnormal movement. No fasciculations. Unable to assess sensory and cerebellar function. PSYCHOLOGICAL: Calm, no hallucinations. LABORATORY DATA WBC 7.5, hemoglobin 11.1, MCV 100.5, platelet 289, sodium 144, potassium 3.8, BUN 28, creatinine 0.43, calcium 8.3, INR 1.1. IMAGING STUDIES - Cervical spine CT revealed chronic appearing fracture through the upper dens with displacement of the fragment, there are degenerative changes involving atlantoaxial joint normal, likely secondary to pannus formation and rheumatoid arthritis with erosion and sclerosis. Suboptimal exam due to the patient's kyphoscoliosis and rotation. Degenerative disk disease and degenerative joint changes. - Cervical spine MRI shows fracture deformity seen on the CT was not well-visualized on this exam due to rotation, kyphosis and scoliosis. The other vertebral bodies appear intact. Degenerative disk change greatest at the C4-5, C5-6 and C6-7 levels with disk osteophyte complexes with no definite mass effect on the cord. DIAGNOSTIC IMPRESSION 1. History of Parkinson's disease/ Duopa pump. 2. Chronic cervical degenerative spine disease. 3. 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 4. History of hypertension. 5. Cervical dystonia with spasmodic torticollis. 6. Rheumatoid arthritis. 7. History of pulmonary fibrosis. PLAN 1. Neuro checks q. four hourly. 2. Consider consult neurosurgery. 3. No need to resume anti Parkinson's medication or Duopa pump because at this time there is no Parkinsonian feature, no tremor or rigidity. 4. Consider with family/palliative care 5. DVT prophylaxis with SCDs. 6. PT/OT, recommendations are appreciated Thank you for the opportunity to participate in the care of your patient. MD MIKAEL Naidu/TLJenifer /1:31 PM /3:31 PM ESTRELLA
--- NOTE | 2016-08-27 20:57 | PD.CONS ---
History of Present Illness Service Neurosurgery Consult Requested By Medicine service Primary Care Physician Non-Staff Diagnoses: History of Present Illness 66-year-old female with history of Parkinson's disease, cervical dystonia, pulmonary fibrosis, hypertension. Patient apparently fell approximately 3 months ago and was seen at [facility] with diagnosis of chronic versus acute C2 fracture for which she was transferred to [facility] for further treatment. The patient was apparently discharged to intermediate facility and at that time was able to ambulate with a walker up until a couple weeks ago when she apparently again lost control of her motor function with quadriparesis. She apparently was seen by neurology yesterday as an outpatient and sent to the emergency room for further evaluation. The patient indicates that she has not been able to move her arms or legs significantly for a couple of weeks. She denies significant neck pain. Review of Systems Review of systems is difficult to obtain from the patient due to her difficulty localizing. She denies neck pain. Indicates weakness for a couple of weeks as noted above. Denies headache. Denies extremity pain. Past Family Social History Allergies: Coded Allergies: No Known Allergies (Unverified , 04/14/16) Past Medical History Parkinson's Cervical dystonia Pulmonary fibrosis Hypertension Decubitus ulcer Past Surgical History Knee arthroplasty Duopa pump placement Reported Medications Reported Meds & Active Scripts Active Reported Dulcolax DR (Bisacodyl) 5 Mg Tabdr 5 Mg PO DAILY PRN Famotidine 20 Mg Tab 40 Mg PO HS Tylenol (Acetaminophen) 325 Mg Tab 650 Mg PO Q6H PRN Zinc Sulfate 220 Mg Tab 220 Mg PO DAILY Vitamin C (Ascorbic Acid) 500 Mg Tab 500 Mg PO DAILY Sinemet Cr (Carbidopa-Levodopa ER) 25-100 Mg Tab 1-2 Tab PO HS Loperamide (Loperamide HCl) 2 Mg Cap 2 Mg PO Q8HR PRN [place] (Hydrocodone-Acetaminophen) 5-325 mg Tab 1 Tab PO Q12HR PRN Valium (Diazepam) 2 Mg Tab 2-4 Mg PO BID PRN Vesicare (Solifenacin) 5 Mg Tab 5 Mg PO DAILY Mg217 Psoriasis Multi-Symptom Topical ([place]ome Tar Extract) 2% Oint 1 Applic TOPICAL DAILY Stool Softener (Docusate Sodium) 100 Mg Cap 100 Mg PO DAILY PRN Fosamax (Alendronate Sodium) 70 Mg Tab 70 Mg PO WEEKLY Oyster-Vishnu 500 (Calcium) 500 Mg Tab 1,000 Mg PO DAILY Celebrex (Celecoxib) 200 Mg Cap 200 Mg PO BID Humira 2-Pack Inj (Adalimumab 2-Pack Inj) 40 Mg/0.8 Ml Syr 40 Mg SQ WEEKLY Duopa Enteral Infusion (Carbidopa-Levodopa Enteral Infusion) 4.63-20 Mg/Ml Susp 4.63-20 Mg J-TUBE DAILY Family History History of cancer in her mother who is still alive Social History Previous cigarette smoker. No alcohol use Physical Exam Vital Signs Vital Signs Date Time Temp Pulse Resp B/P Pulse Ox O2 Delivery O2 Flow Rate FiO2 08/27/16 15:18 98.0 91 19 116/74 95 08/27/16 12:34 98.0 81 19 122/79 95 08/27/16 11:35 77 08/27/16 08:28 74 19 128/83 95 08/27/16 06:00 98.4 68 16 117/68 97 Physical Exam GENERAL: Somewhat cachectic appearing lady, thin, does not appear uncomfortable SKIN: No rashes, ecchymoses or lesions. Cool and dry. HEAD: Atraumatic. Normocephalic. No temporal or scalp tenderness. EYES: Sclerae are clear and nonicteric ENT: Oropharynx not well seen. No nasal or external auditory canal discharge NECK: Significant left lateral neck angulation and rotation with chronic contracture. CARDIOVASCULAR: Regular rate and rhythm without murmurs, gallops, or rubs. RESPIRATORY: Diminished breath sounds. Clear. No rhonchi or wheezing GASTROINTESTINAL: Abdomen soft, non-tender, nondistended. No hepato-splenomegaly , or palpable masses. No guarding. MUSCULOSKELETAL: Arthritic changes in the hands. No long bone or joint deformity bilaterally. NEUROLOGICAL: Awake and relatively alert. She says a few words was very soft speech, difficult to understand. She is asking for her Parkinson medication. Denies significant pain. Judgment and insight and memory are difficult to ascertain. She follows simple commands. Limited conjugate extraocular movements and facial movements. Tongue protrudes slightly in the midline Symmetric facial movements Patient indicates sensation to light touch in all extremities Absent movement throughout the upper and lower extremities except for minimal approximately 2/5 bilateral ankle flexion and extension. Lenny's response absent bilateral No ankle clonus Plantar responses are neutral Laboratory Laboratory Tests Test 08/27/16 06:22 White Blood Count 6.7 Red Blood Count 3.23 Hemoglobin 11.1 Hematocrit 32.5 Mean Corpuscular Volume 100.5 Mean Corpuscular Hemoglobin 34.4 Mean Corpuscular Hemoglobin 34.2 Concent Red Cell Distribution Width 14.8 Platelet Count 289 Mean Platelet Volume 7.5 Neutrophils (%) (Auto) 46.4 Lymphocytes (%) (Auto) 42.1 Monocytes (%) (Auto) 9.0 Eosinophils (%) (Auto) 2.1 Basophils (%) (Auto) 0.4 Neutrophils # (Auto) 3.1 Lymphocytes # (Auto) 2.8 Monocytes # (Auto) 0.6 Eosinophils # (Auto) 0.1 Basophils # (Auto) 0.0 CBC Comment DIFF FINAL Differential Comment Sodium Level 144 Potassium Level 3.8 Chloride Level 108 Carbon Dioxide Level 30.0 Anion Gap 6 Blood Urea Nitrogen 22 Creatinine 0.43 Estimat Glomerular Filtration 146 Rate Random Glucose 93 Calcium Level 8.1 Date/Time Procedure Status Source Growth 08/26/16 18:28 Gram Stain - Final Resulted Wound Buttock 08/26/16 18:28 Wound Culture - Preliminary Resulted Wound Buttock HEAVY GROWTH NORMAL SKIN [place] AT 24HRS 08/26/16 18:28 Aerobic Blood Culture - Preliminary Resulted Blood Peripheral NO GROWTH IN 1 DAY 08/26/16 18:28 Anaerobic Blood Culture - Preliminary Resulted Blood Peripheral NO GROWTH IN 1 DAY Result Diagram: 08/27/16 0622 08/27/16 0622 Imaging 08/26/16 CT and MRI cervical spine images are reviewed by the undersigned. The patient has a chronic-appearing C2 fracture with severe angulation and displacement of the dens fragment and C1 ring with significant unilateral C1-C2 facet subluxation and rotation. There appears to be displacement of the posterior lateral arch of C1 into the spinal canal causing significant canal compromise and cord compression at the C1 -2 level. Probable increased signal intensity within the cord at the C1-[address] 08/26/161816 Signed Impressions: Service Date/Time: Friday, August 26, 2016 18:36 - CONCLUSION: 1. Chronic appearing fracture through the upper dens with displacement of the fragment. 2. There are degenerative changes involving atlantoaxial joint normal likely secondary to pannus formation and rheumatoid arthritis with erosions and sclerosis. 3. Suboptimal exam due to the patient's kyphosis scoliosis and rotation. 4. Degenerative disc and degenerative joint changes. Enrique Damon MD Entire Spine MRI 08/26/16 0000 Signed Impressions: Service Date/Time: Friday, August 26, 2016 20:47 - CONCLUSION: 1. Marrow abnormalities involving the T11 and T12 vertebral bodies representing compression fracture deformities of indeterminate age. 2. Rounded marrow abnormalities in the T6 and T7 vertebral bodies with ring enhancement. These are nonspecific and could represent Schmorl's nodes versus possible metastasis. 3. Diffuse degenerative disc changes with scoliosis and kyphosis. Enrique Damon MD Cervical Spine MRI 08/26/16 0000 Signed Impressions: Service Date/Time: Friday, August 26, 2016 20:47 - CONCLUSION: 1. The known fracture deformity of the dens seen on CT is not well-visualized on this exam due to the rotation, kyphosis and scoliosis. 2. The other vertebral bodies appear intact. 3. Degenerative disc change greatest at the C4-5, C5-6 and C6-7 levels with disc osteophyte complexes with no definite mass effect on the cord. Enrique Damon MD Assessment and Plan Assessment and Plan Impression: 1. Chronic appearing C1 fracture with significant rotational subluxation of the C1 arch and-fracture dense complex with likely significant C1-2 level stenosis and cord compression. 2. Parkinson's 3. Cervical dystonia 4. History of arthritis 5. History of pulmonary fibrosis Recommendations. Findings were discussed with the patient. I explained to her at length the issues regarding the spinal cord compression and her options of conservative treatment, possibly a halo placement to try to reduce the deformity, and ultimately a possible surgical decompression and fusion. Because of the patient's severe deficit which has apparently been present for at least a couple of weeks, the patient's overall medical condition as well as the likely poor bone quality and history of arthritis which may hinder bone fusion, she would appear to be a relatively poor candidate for surgical intervention with a relatively high risk of complication and a relatively low chance of improvement with surgery. Unfortunately without any intervention, her present condition is considered life-threatening with the likelihood of progressive spinal cord compression and secondary respiratory complications. Palliative care evaluation requested. We will need to discuss further with the patient and her family. Bertram Griffin MD Aug 27, 2016 20:57
[2016-08-27] MEDS ORDERED: SINEMET PO SCH (21:00)
[2016-08-27] MEDS: FAMOTIDINE 20 MG TAB PO SCH (21:44)
[2016-08-28 04:25] VITALS: BP 128/81; PULSE 67; RESP 18; TEMP 98.7; O2SAT 97
[2016-08-28 08:11] VITALS: BP 145/82; PULSE 74; RESP 17; TEMP 95.8; O2SAT 94
[2016-08-28] MEDS: ENOXAPARIN SODIUM 40 MG/0.4 ML SYRINGE SQ SCH (09:00)
[2016-08-28] MEDS: TOLTERODINE TARTRATE 2 MG CAP LA PO SCH (09:00)
--- NOTE | 2016-08-28 09:24 | HHI.PR ---
Subjective Remarks Follow up for quadriparesis, subacute C2 fracture. The patient reports continued weakness. Denies any pain. She is requesting her Parkinsons medications be restarted. She says 1 week prior to this hospitalization she was walking with a walker and was able to move her arms but could not use her hands. She says over the past week she has gotten progressively weaker. She denies any dysphagia. She is tolerating oral intake. Objective Vitals Vital Signs Date Time Temp Pulse Resp B/P Pulse Ox O2 Delivery O2 Flow Rate FiO2 08/28/16 04:25 98.7 67 18 128/81 97 08/27/16 23:52 97.8 73 18 138/85 98 08/27/16 23:22 98.4 78 18 120/74 97 08/27/16 15:18 98.0 91 19 116/74 95 08/27/16 12:34 98.0 81 19 122/79 95 08/27/16 11:35 77 Result Diagram: 08/27/16 0622 08/27/16 0622 Imaging Last Impressions Cervical Spine CT 08/26/167 Signed Impressions: Service Date/Time: Friday, August 26, 2016 18:36 - CONCLUSION: 1. Chronic appearing fracture through the upper dens with displacement of the fragment. 2. There are degenerative changes involving atlantoaxial joint normal likely secondary to pannus formation and rheumatoid arthritis with erosions and sclerosis. 3. Suboptimal exam due to the patient's kyphosis scoliosis and rotation. 4. Degenerative disc and degenerative joint changes. Enrique Damon MD Ent[facility] Sp[facility] MRI 08/26/16 0000 Signed Impressions: Service Date/Time: Friday, August 26, 2016 20:47 - CONCLUSION: 1. Marrow abnormalities involving the T11 and T12 vertebral bodies representing compression fracture deformities of indeterminate age. 2. Rounded marrow abnormalities in the T6 and T7 vertebral bodies with ring enhancement. These are nonspecific and could represent Schmorl's nodes versus possible metastasis. 3. Diffuse degenerative disc changes with scoliosis and kyphosis. Enrique Damon MD Cervical Spine MRI 08/26/16 0000 Signed Impressions: Service Date/Time: Friday, August 26, 2016 20:47 - CONCLUSION: 1. The known fracture deformity of the dens seen on CT is not well-visualized on this exam due to the rotation, kyphosis and scoliosis. 2. The other vertebral bodies appear intact. 3. Degenerative disc change greatest at the C4-5, C5-6 and C6-7 levels with disc osteophyte complexes with no definite mass effect on the cord. Enrique Damon MD Objective Remarks GENERAL: Well-nourished, well-developed elderly female patient in [facility]. SKIN: Warm and dry. No rash. HEENT: Normocephalic. Atraumatic. Pupils equal and round.Mucous membranes pink and moist. NECK: Torticollis with chin touching touching chest and head turned to the left. CARDIOVASCULAR: Regular rate and rhythm. S1, S2 noted. No murmur appreciated. RESPIRATORY: No accessory muscle use. Clear to auscultation. Breath sounds equal bilaterally. GASTROINTESTINAL: Abdomen soft, non-tender, nondistended. Normoactive bowel sounds x4. MUSCULOSKELETAL: No obvious deformities. Extremities without clubbing, cyanosis , or edema. NEUROLOGICAL: Awake and alert. No obvious cranial nerve deficits. Bilateral upper extremity paralysis, unable to move arms. Bilateral lower extremity weakness 2/5, able to wiggle toes. Very soft spoken. PSYCHIATRIC: Appropriate mood and affect; insight and judgment normal. Medications and IVs Current Medications Medications (Trade) Dose Ordered Sig/Judson Route Start Time Stop Time Status Last Admin (NS Flush) 2 ml UNSCH PRN IV FLUSH 08/26/16 22:15 (NS Flush) 2 ml BID IV FLUSH 08/27/16 09:00 08/27/16 21:44 (Narcan Inj) 0.4 mg UNSCH PRN IV 08/26/16 22:15 (Tylenol) 650 mg Q6H PRN PO 08/26/16 22:15 (Vitamin C) 500 mg DAILY PO 08/27/16 09:00 08/27/16 10:42 (Dulcolax Ec) 5 mg DAILY PRN PO 08/26/16 22:15 (Oscal) 1,000 mg DAILY PO 08/27/16 09:00 08/27/16 10:42 (Valium) 2 mg BID PRN PO 08/26/16 22:15 (Colace) 100 mg DAILY PRN PO 08/26/16 22:15 (Pepcid) 40 mg HS PO 08/27/16 21:00 08/27/16 21:44 ([place] 5-325 Mg) 1 tab Q12HR PRN PO 08/26/16 22:15 (Zinc Sulfate) 220 mg DAILY PO 08/27/16 09:00 Patient Own Medication PT OWN MED: Suspensi... Q16H J-TUBE 08/27/16 05:00 Hold (Detrol La) 2 mg DAILY PO 08/27/16 09:00 (Lovenox Inj) 40 mg Q24H SQ 08/27/16 09:00 Patient Own Medication PT OWN MED: SINEMET... HS PO 08/27/16 21:00 Hold A/P Assessment and Plan 66-year-old female patient with a past medical history which includes pulmonary fibrosis, cervical dystonia, spasmodic torticollis, Parkinson's disease rheumatoid arthritis and hypertension. Patient sustained a fall 3 months ago, and was seen at [facility], and was transported to [facility]. At that time the patient was found to have a C2 fracture which was unclear if it was chronic or acute. At discharge from the hospital 2 weeks ago the patient was able to move all limbs and transfer to rehabilitation walking with a walker. Then 2 weeks ago patient had a "another spell", and can't move her arms or legs. Acute neurological deficit/quadriparesis: C-spine CT reveals Chronic appearing fracture through the upper dens with displacement of the fragment; degenerative changes involving atlantoaxial joint normal likely secondary to pannus formation and rheumatoid arthritis with erosions and sclerosis. C-spine MRI reveals dependent fracture deformity of the dens seen in CT is not well visualized on this exam due to rotation kyphosis and scoliosis. The vertebral bodies appear intact. Degenerative disc change in greatest at C4 to C5, CA 5 to C6 and C6 to C7 levels with disc osteophyte complexes with no definitive mass effect on the cord. -ER provider discussed with Dr. Griffin, the neurosurgeon who feels the patient needs to be admitted but is unsure that he couldn't do anything surgically for this patient -Dr. Benoit d/w Dr. Griffin today - OK to start PT/OT, patient with poor prognosis -Evaluated by Dr. Griffin, poor candidate for surgery, agrees with palliative care -Consult palliative care, appreciate recommendations -neuro checks Parkinson's Disease with Cervical Dystonia, Intractable Neck Pain/Spasms: chronic, the patient has a Carbidopa-Levodopa infusion pump however unable to be restarted as noone available to bring pump medications into hospital. -discussed with pharmacy, recommended Carbidopa-Levodopa 50-200mg po 3 tabs tid and 1 tab q4h prn -neurology consulted, Dr. Haney does not recommend restarting medications at this time with no Parkinsonian feature including tremor/rigidity -patient very adamant about restarting her medications, will restart for now -will also discuss with patient's neurologist Dr. Leon Rheumatoid Arthritis: chronic, continue patient's Celebrex. Pulmonary Fibrosis: O2 as needed. Patient stable on room air. DVT Prophylaxis: SCDs and lovenox CODE STATUS: Full code I spent 35 minutes [id number] with the patient or on the valentine discussing the patient's disposition, prognosis, and plan of care with her caregivers. Over half the time spent was devoted to counseling the patient regarding placement in coordinating care with specialists, caregivers, and case management. Written by Flora Jean, acting as scribe for Dr. Benoit on 08/28/16 at 13:15 This note was transcribed by scribe Flora Jean. I, Dr. Joan Benoit personally performed the history, physical exam, and medical decision making; and confirmed the accuracy of the information in the transcribed note. Authenticated by Dr. Joan Benoit on 08/28/16 at 20:21. Flora Jean PA-C Aug 28, 2016 09:24 Joan Benoit MD Aug 28, 2016 20:21
[2016-08-28] MEDS: ASCORBIC ACID 500 MG TAB PO SCH (09:55)
[2016-08-28] MEDS: SODIUM CHLORIDE 0.9% FLUSH 10 ML FLUSH IV FLUSH SCH ×2 (09:55→21:00)
[2016-08-28] MEDS: ZINC SULFATE 220 MG CAP PO SCH (09:56)
[2016-08-28] MEDS: CALCIUM CARBONATE 1.25 GM (CA 500 MG) TAB PO SCH (09:56)
[2016-08-28 12:36] VITALS: BP 132/83; PULSE 75; RESP 15; TEMP 98; O2SAT 99
[2016-08-28] MEDS ORDERED: LEVODOPA/CARBIDOPA 1 TAB TABCR PO PRN (14:00)
[2016-08-28] MEDS: LEVODOPA/CARBIDOPA 1 TAB TABCR PO SCH ×2 (14:24→23:04)
[2016-08-28 15:15] VITALS: BP 107/73; PULSE 99; RESP 16; TEMP 97.8; O2SAT 98
--- NOTE | 2016-08-28 16:18 | HHI.HCPN ---
Reason for visit a. To assist with evaluation and management of symptoms including:pain, weakness b. To assist medical decision maker(s) with: better understanding of current medical conditions; weighing benefits/burdens of medical treatment options; making medical treatment decisions. (Zuleyka Mariee) Subjective/Interval History Ms Mendieta was started back on her Sinemet and is able to speak more clearly today. Her voice is stronger. She is clearly alert and oriented and able to direct her care. She was cleared by OT to start geo mechancal soft diet. She was evaluated by neurology and neurosurgery. - Due to her severe deficit, her overall 'medical condition as well as the likely poor bone quality and history of arthritis which may hinder bone fusion, she would appear to be a relatively poor candidate for surgical intervention with a relatively high risk of complication and a relatively low chance of improvement with surgery. Unfortunately without any intervention, her present condition is considered life -threatening with the likelihood of progressive spinal cord compression and secondary respiratory complications." I was able to talk with her sister today who reinforces Ms Mendieta's cognitive state. I spoke with both the patient about code status - she tells me she wanted to think about it and talk to her family about it. I talked w her son yesterday and he understands that if CPR was to be performed or if she were attempted to be intubated that she would incur significant injury and would not survive the effort. I had this same discussion with her sister privately today regarding this. I also discussed the option for hospice care in light of her greatly debilitated state and based on the comments of neurosurgery. The discussion was provided for the purpose of supporting the patient in decision making as she is able to make her own decisions, At this time, she remains a FULL CODE. (Zuleyka Mariee) Advance Directives Living Will: Completed, but not made available (Zuleyka Mariee) Advance Directive Specifics Health Care Surrogate(s): Pb Avalos [phone] (Zuleyka Mariee) Objective Vital Signs Date Time Temp Pulse Resp B/P Pulse Ox O2 Delivery O2 Flow Rate FiO2 08/28/16 12:36 98.0 75 15 132/83 99 08/28/16 08:11 95.8 74 17 145/82 94 08/28/16 04:25 98.7 67 18 128/81 97 08/27/16 23:52 97.8 73 18 138/85 98 08/27/16 23:22 98.4 78 18 120/74 97 Physical Exam CONSTITUTIONAL/GENERAL: This is an very frail and cachectic woman, in no apparent distress. TUBES/LINES/DRAINS: J-tube to midline abdomen SKIN: She has a patchy blister type rash to her right upper thigh. She has a significant bruise to her left fatima area. It is reported that she has a coccyx wound, skin is very dry HEAD: Atraumatic. Normocephalic. EYES: Pupils equal and round and reactive. Extraocular motions intact. No scleral icterus. No injection or drainage. Fundi not examined. ENT: Hearing grossly normal. Nose without bleeding or purulent drainage. Throat without visible erythema, exudates, masses, or lesions. NECK: She has severe neck flexion to the left and is unable to move her head independently, Trachea midline. Supple, nontender. No palpable thyroid enlargement or nodularity. CARDIOVASCULAR: Regular rate and rhythm without murmurs, gallops, or rubs. No JVD. Peripheral pulses symmetric. RESPIRATORY/CHEST: Symmetric, unlabored respirations. Clear to auscultation. Breath sounds equal bilaterally. No wheezes, rales, or rhonchi. GASTROINTESTINAL: Abdomen soft, non-tender, nondistended. Scaphoid No hepato- splenomegaly, or palpable masses. No guarding. Bowel sounds present. GENITOURINARY: Without palpable bladder distension. MUSCULOSKELETAL: She has changes noted to her joints from rheumatoid arthritis Extremities without clubbing, cyanosis, or edema. No joint tenderness or effusion noted. No calf tenderness. No mottling or clubbing. LYMPHATICS: No palpable cervical or supraclavicular adenopathy. NEUROLOGICAL: Awake and alert. She attempts to speak, but her voice is very, very soft and she is very difficult to understand. She is reported to be oriented times 3. She is able to follow commands to the limits of her neurologic capacitywe will her toes move her feet. She is unable to move either arm. Both arms are flaccid PSYCHIATRIC: No obvious anxiety/depression. no apparent hallucinations or other psychotic thought process. (Zuleyka Mariee) Diagnostic Tests Laboratory Laboratory Tests Test 08/26/16 08/27/16 18:28 06:22 White Blood Count 7.5 TH/MM3 6.7 TH/MM3 (4.0-11.0) (4.0-11.0) Red Blood Count 3.34 MIL/MM3 3.23 MIL/MM3 (4.00-5.30) (4.00-5.30) Hemoglobin 11.7 GM/DL 11.1 GM/DL (11.6-15.3) (11.6-15.3) Hematocrit 33.2 % 32.5 % (35.0-46.0) (35.0-46.0) Mean Corpuscular Volume 99.2 FL 100.5 FL (80.0-100.0) (80.0-100.0) Mean Corpuscular Hemoglobin 35.1 PG 34.4 PG (27.0-34.0) (27.0-34.0) Mean Corpuscular Hemoglobin 35.4 % 34.2 % Concent (32.0-36.0) (32.0-36.0) Red Cell Distribution Width 14.5 % 14.8 % (11.6-17.2) (11.6-17.2) Platelet Count 324 TH/MM3 289 TH/MM3 (150-450) (150-450) Mean Platelet Volume 7.4 FL 7.5 FL (7.0-11.0) (7.0-11.0) Neutrophils (%) (Auto) 56.8 % 46.4 % (16.0-70.0) (16.0-70.0) Lymphocytes (%) (Auto) 32.7 % 42.1 % (9.0-44.0) (9.0-44.0) Monocytes (%) (Auto) 8.0 % (0.0-8.0) 9.0 % (0.0-8.0) Eosinophils (%) (Auto) 1.9 % (0.0-4.0) 2.1 % (0.0-4.0) Basophils (%) (Auto) 0.6 % (0.0-2.0) 0.4 % (0.0-2.0) Neutrophils # (Auto) 4.2 TH/MM3 3.1 TH/MM3 (1.8-7.7) (1.8-7.7) Lymphocytes # (Auto) 2.4 TH/MM3 2.8 TH/MM3 (1.0-4.8) (1.0-4.8) Monocytes # (Auto) 0.6 TH/MM3 0.6 TH/MM3 (0-0.9) (0-0.9) Eosinophils # (Auto) 0.1 TH/MM3 0.1 TH/MM3 (0-0.4) (0-0.4) Basophils # (Auto) 0.0 TH/MM3 0.0 TH/MM3 (0-0.2) (0-0.2) CBC Comment DIFF FINAL DIFF FINAL Differential Comment Prothrombin Time 12.2 SEC (9.8-11.6) Prothromb Time International 1.1 RATIO Ratio Activated Partial 28.7 SEC Thromboplast Time (24.3-30.1) Sodium Level 142 MEQ/L 144 MEQ/L (136-145) (136-145) Potassium Level 4.0 MEQ/L 3.8 MEQ/L (3.5-5.1) (3.5-5.1) Chloride Level 107 MEQ/L 108 MEQ/L (98-107) (98-107) Carbon Dioxide Level 26.1 MEQ/L 30.0 MEQ/L (21.0-32.0) (21.0-32.0) Anion Gap 9 MEQ/L (5-15) 6 MEQ/L (5-15) Blood Urea Nitrogen 23 MG/DL (7-18) 22 MG/DL (7-18) Creatinine 0.44 MG/DL 0.43 MG/DL (0.50-1.00) (0.50-1.00) Estimat Glomerular Filtration 142 ML/MIN 146 ML/MIN Rate (>89) (>89) Random Glucose 111 MG/DL 93 MG/DL (74-106) (74-106) Lactic Acid Level 1.6 mmol/L (0.4-2.0) Calcium Level 7.9 MG/DL 8.1 MG/DL (8.5-10.1) (8.5-10.1) Magnesium Level 2.0 MG/DL (1.5-2.5) Total Bilirubin 0.6 MG/DL (0.2-1.0) Aspartate Amino Transf 17 U/L (15-37) (AST/SGOT) Alanine Aminotransferase 7 U/L (10-53) (ALT/SGPT) Alkaline Phosphatase 80 U/L (45-117) Total Protein 5.5 GM/DL (6.4-8.2) Albumin 2.4 GM/DL (3.4-5.0) (Zuleyka Mariee) Result Diagram: 08/27/1662108/27/16621 Microbiology Microbiology Date/Time Procedure Status Source Growth 08/26/16 18:00 Aerobic Blood Culture - Preliminary Resulted Blood Peripheral NO GROWTH IN 2 DAYS 08/26/16 18:00 Anaerobic Blood Culture - Preliminary Resulted Blood Peripheral NO GROWTH IN 2 DAYS 08/26/16 18:28 Aerobic Blood Culture - Preliminary Resulted Blood Peripheral NO GROWTH IN 2 DAYS 08/26/16 18:28 Anaerobic Blood Culture - Preliminary Resulted Blood Peripheral NO GROWTH IN 2 DAYS 08/26/16 18:28 Gram Stain - Final Complete Wound Buttock 08/26/16 18:28 Wound Culture - Final Complete Wound Buttock HEAVY GROWTH NORMAL SKIN VAL[place]INA... Imaging Last 72 hours Impressions Cervical Spine CT 08/26/16 1817 Signed Impressions: Service Date/Time: Friday, August 26, 2016 18:36 - CONCLUSION: 1. Chronic appearing fracture through the upper dens with displacement of the fragment. 2. There are degenerative changes involving atlantoaxial joint normal likely secondary to pannus formation and rheumatoid arthritis with erosions and sclerosis. 3. Suboptimal exam due to the patient's kyphosis scoliosis and rotation. 4. Degenerative disc and degenerative joint changes. Enrique Damon MD Entire Spine MRI 08/26/16 0000 Signed Impressions: Service Date/Time: Friday, August 26, 2016 20:47 - CONCLUSION: 1. Marrow abnormalities involving the T11 and T12 vertebral bodies representing compression fracture deformities of indeterminate age. 2. Rounded marrow abnormalities in the T6 and T7 vertebral bodies with ring enhancement. These are nonspecific and could represent Schmorl's nodes versus possible metastasis. 3. Diffuse degenerative disc changes with scoliosis and kyphosis. Enrique Damon MD Cervical Spine MRI 08/26/16 0000 Signed Impressions: Service Date/Time: Friday, August 26, 2016 20:47 - CONCLUSION: 1. The known fracture deformity of the dens seen on CT is not well-visualized on this exam due to the rotation, kyphosis and scoliosis. 2. The other vertebral bodies appear intact. 3. Degenerative disc change greatest at the C4-5, C5-6 and C6-7 levels with disc osteophyte complexes with no definite mass effect on the cord. Enrique Damon MD ([facility]) Assessment and Plan Disease Oriented Problem List: (1) Chronic pain (2) Rheumatoid arthritis (3) Parkinsons disease (4) C2 cervical fracture (5) Muscle weakness of extremity Symptom Scale: (1) Chronic pain 0-10 Scale: 0 Comment: denies at this time - However, she has severe degenerative disease as well as rheumatoid arthritis (2) Anxiety 0-10 Scale: 0 (denies at this time) Pertinent Non-Medical Issues Psychosocial: , has 4 children, morris Ambriz is healthcare surrogate, lives in detention facility Spiritual: Confucianist beliefs Legal: It is reported from prior records that she has a living will. However, it is unavailable at this time. Will contact her son Pb and obtain the document Ethical issues impacting care: Important Contacts Pb Dubose, morris, Prognosis Prognosis is guarded in light of her rather significant physical decline. She is quite frail and cachectic. Her current albumin level is 2.4 At this point, she is bedridden. She has a coccyx wound that is noted on records from the skilled facility. She is unable to feed herself or manage her needs. Per Neurosurgery "Unfortunately without any intervention, her present condition is considered life-threatening with the likelihood of progressive spinal cord compression and secondary respiratory complications" Code Status: Full Code Plan Decision Maker: Pb Jiang [phone] Code Status: Full code at this time. There is report of a living will Family Discussion: spoke with patient and patients sister re: code status. Unable to make a decision at this time. Talked in private with her sister re: hospice care / mgmt in light of her debilitated state and on comments from Neurosurgery. She has been a very strong and independent woman thru out her life. Her sister feels she has realistic expectations as her life / future. However, it may be that she is not ready to accept her current state. Symptoms: Pain, Anxiety Palliative care phone number provided - will follow during hospital stay. ( Zuleyka Mariee) Attestation To help prompt me to consider important information that might be impacting today's encounter and assessment, information from prior notes written by myself or my colleagues may have been "brought forward" into today's note. My signature on this note, however, is an attestation that I personally performed the exam, history, and/or decision-making noted today, and, unless otherwise indicated, the interactions with patient, family, and staff as well as the review of records all occurred today. I also attest that the listed assessment and stated plan reflect my best clinical judgment today based on the combination of historical information, prior notes, and today's exam/ interactions. When time spent is documented, it refers only to time spent today by the signer, or if indicated, combined time spent today by collaborating physician/nurse practitioner. (Zuleyka Mariee) Collaborating MD Comments . Chart reviewed. 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 Above [employer]EDER note reviewed and I concur. . (Marciano Balderas MD) Zuleyka Mariee Aug 28, 2016 16:17 Marciano Balderas MD October 13, 2016 15:11
[2016-08-28 20:00] VITALS: BP 90/58; PULSE 95; RESP 18; TEMP 97.1; O2SAT 96
[2016-08-28] MEDS: FAMOTIDINE 20 MG TAB PO SCH ×2 (21:00→23:04)
[2016-08-29] VITALS: BP 99/64; PULSE 81; RESP 17; TEMP 97; O2SAT 98
[2016-08-29 04:00] VITALS: BP 116/80; PULSE 80; RESP 17; TEMP 97.6; O2SAT 98
[2016-08-29] MEDS: LEVODOPA/CARBIDOPA 1 TAB TABCR PO SCH ×3 (05:54→22:16)
[2016-08-29 08:00] VITALS: BP 111/75; PULSE 80; RESP 18; TEMP 96.7; O2SAT 98
[2016-08-29] MEDS: ZINC SULFATE 220 MG CAP PO SCH (09:40)
[2016-08-29] MEDS: CALCIUM CARBONATE 1.25 GM (CA 500 MG) TAB PO SCH (09:40)
[2016-08-29] MEDS: ASCORBIC ACID 500 MG TAB PO SCH (09:40)
[2016-08-29] MEDS: TOLTERODINE TARTRATE 2 MG CAP LA PO SCH (09:40)
[2016-08-29] MEDS: ENOXAPARIN SODIUM 40 MG/0.4 ML SYRINGE SQ SCH (09:40)
[2016-08-29] MEDS: SODIUM CHLORIDE 0.9% FLUSH 10 ML FLUSH IV FLUSH SCH ×2 (09:41→22:16)
[2016-08-29 12:00] VITALS: BP 121/77; PULSE 84; RESP 17; TEMP 96.3; O2SAT 99
--- NOTE | 2016-08-29 12:53 | HHI.PR ---
Subjective Remarks Patient reports is very difficult to understand but was able to convey that she is doing okay. She denies any significant pain. States she is thirsty, able to drink water from the straw with my assistance. She denies shortness of breath. Objective Vitals Vital Signs Date Time Temp Pulse Resp B/P Pulse Ox O2 Delivery O2 Flow Rate FiO2 08/29/16 12:00 96.3 84 17 121/77 99 08/29/16 08:00 96.7 80 18 111/75 98 08/29/16 04:00 97.6 80 17 116/80 98 08/29/16 00:00 97.0 81 17 99/64 98 08/28/16 20:00 97.1 95 18 90/58 96 08/28/16 15:15 97.8 99 16 107/73 98 08/28/16 12:36 98.0 75 15 132/83 99 I/O 08/28/16 08/28/16 08/28/16 08/29/16 08/29/16 08/29/16 07:00 15:00 23:00 07:00 15:00 23:00 Intake Total 100 ml Output Total 150 ml Balance -50 ml Intake Oral 100 ml Output Urine Total 150 ml # Voids 1 # Bowel Movements 1 Result Diagram: 08/27/16 0622 08/27/16 0622 Imaging Last Impressions Cervical Spine CT 08/26/16 1817 Signed Impressions: Service Date/Time: Friday, August 26, 2016 18:36 - CONCLUSION: 1. Chronic appearing fracture through the upper dens with displacement of the fragment. 2. There are degenerative changes involving atlantoaxial joint normal likely secondary to pannus formation and rheumatoid arthritis with erosions and sclerosis. 3. Suboptimal exam due to the patient's kyphosis scoliosis and rotation. 4. Degenerative disc and degenerative joint changes. Enrique Damon MD Entire Spine MRI 08/26/16 0000 Signed Impressions: Service Date/Time: Friday, August 26, 2016 20:47 - CONCLUSION: 1. Marrow abnormalities involving the T11 and T12 vertebral bodies representing compression fracture deformities of indeterminate age. 2. Rounded marrow abnormalities in the T6 and T7 vertebral bodies with ring enhancement. These are nonspecific and could represent Schmorl's nodes versus possible metastasis. 3. Diffuse degenerative disc changes with scoliosis and kyphosis. Enrique Damon MD Cervical Spine MRI 08/26/16 0000 Signed Impressions: Service Date/Time: Friday, August 26, 2016 20:47 - CONCLUSION: 1. The known fracture deformity of the dens seen on CT is not well-visualized on this exam due to the rotation, kyphosis and scoliosis. 2. The other vertebral bodies appear intact. 3. Degenerative disc change greatest at the C4-5, C5-6 and C6-7 levels with disc osteophyte complexes with no definite mass effect on the cord. Enrique Damon MD Objective Remarks GENERAL: Cachectic and frail looking female. Appear much older than stated age. Very difficult to get words out. Very difficult to understand. NECK: Her shins touching her chest with the head rotated to the left. CARDIOVASCULAR: Normal rate and regular rhythm without murmurs, gallops, or rubs. RESPIRATORY: Breath sounds equal and clear to auscultation bilaterally. GASTROINTESTINAL: Abdomen soft, non-tender, non-distended. Normal active bowel sounds MUSCULOSKELETAL: Extremities without cyanosis, or edema. NEURO: Alert & Oriented. Very difficult to understand speech. Very difficult to get words out. PSYCH: Calm A/P Assessment and Plan 66-year-old female patient with a past medical history which includes pulmonary fibrosis, cervical dystonia, spasmodic torticollis, Parkinson's disease rheumatoid arthritis and hypertension. Patient sustained a fall 3 months ago, and was seen at [facility], and was transported to [facility]. At that time the patient was found to have a C2 fracture which was unclear if it was chronic or acute. At discharge from the hospital 2 weeks ago the patient was able to move all limbs and transfer to rehabilitation walking with a walker. Then 2 weeks ago patient had a "another spell", and can't move her arms or legs. Worsening neurological deficit/quadriparesis: C-spine CT reveals Chronic appearing fracture through the upper dens with displacement of the fragment; degenerative changes involving atlantoaxial joint normal likely secondary to pannus formation and rheumatoid arthritis with erosions and sclerosis. C-spine MRI reveals dependent fracture deformity of the dens seen in CT is not well visualized on this exam due to rotation kyphosis and scoliosis. The vertebral bodies appear intact. Degenerative disc change in greatest at C4 to C5, CA 5 to C6 and C6 to C7 levels with disc osteophyte complexes with no definitive mass effect on the cord. - Neurosurgery evaluated the patient, she is very poor surgical candidate at risk for worsening status including respiratory failure. Palliative care has been consulted. - Palliative care to follow up regarding goals of care. Poor prognosis. Parkinson's Disease with Cervical Dystonia, Intractable Neck Pain/Spasms: chronic, the patient has a Carbidopa-Levodopa infusion pump however unable to be restarted as noone available to bring pump medications into hospital. -neurology consulted, Dr. Haney does not recommend restarting medications at this time with no Parkinsonian feature including tremor/rigidity -patient very adamant about restarting her medications, This was restarted by previous Hospitalist. Rheumatoid Arthritis: chronic, continue patient's Celebrex. Pulmonary Fibrosis: O2 as needed. Patient stable on room air. DVT Prophylaxis: SCDs and lovenox CODE STATUS: Full code Discharge Planning Need palliative care follow up. 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 Need extensive discussion time with palliative care given her speech limitations. I discussed with the patient;s son who indicated that she can make her own decisions. Unfortunately her son is also dealing with his Hospitalization at this time. Shannan Ac MD Aug 29, 2016 12:53
--- NOTE | 2016-08-29 15:44 | HHI.HCPN ---
Reason for visit a. To assist with evaluation and management of symptoms including:pain, weakness b. To assist medical decision maker(s) with: better understanding of current medical conditions; weighing benefits/burdens of medical treatment options; making medical treatment decisions. (Zuleyka Mariee) Subjective/Interval History Ms Mendieta was started back on her Sinemet this afternoon she is noted to have fasiculations of the head with mouth grinding / chewing. She is asking for a cheeseburger with fries. She denies pain. Vital signs are stable however, it appears that she is not eating very much. She is remains alert and oriented and able to direct her care. PT evaluation was ordered and has yet to be completed. It is the feeling of her son that the medical team needs to communicate that nothing more can be done re: her current disability and comfort care / hospice is recommended. Prior to the hospitalization 3 months ago after a fall w findings of a C2 fracture, she was walking independently, able to feed her self and mange her ADL's. She used a walker due the severity of her scoliois and kyphosis and resulting torticollis. After the fall she was till ambulating but ' had a spell' resulting her her quadriplegia. At this time, she remains a FULL CODE. (Zuleyka Mariee) Advance Directives Living Will: Completed, but not made available (Zuleyka Mariee) Advance Directive Specifics Health Care Surrogate(s): Pb Avalos, son, (Zuleyka Mariee) Objective Vital Signs Date Time Temp Pulse Resp B/P Pulse Ox O2 Delivery O2 Flow Rate FiO2 08/29/16 12:00 96.3 84 17 121/77 99 08/29/16 08:00 96.7 80 18 111/75 98 08/29/16 04:00 97.6 80 17 116/80 98 08/29/16 00:00 97.0 81 17 99/64 98 08/28/16 20:00 97.1 95 18 90/58 96 08/28/16 15:15 97.8 99 16 107/73 98 Intake & Output 08/29/16 08/29/16 07:00 19:00 Intake Total 100 ml Output Total 150 ml Balance -50 ml Intake Oral 100 ml Output Urine Total 150 ml # Voids 1 # Bowel Movements 1 Physical Exam CONSTITUTIONAL/GENERAL: This is an very frail and cachectic woman, in no apparent distress. TUBES/LINES/DRAINS: J-tube to midline abdomen SKIN: She has a patchy blister type rash to her right upper thigh. She has a significant bruise to her left fatima area. It is reported that she has a coccyx wound, skin is very dry HEAD: Atraumatic. Normocephalic. EYES: Pupils equal and round and reactive. Extraocular motions intact. No scleral icterus. No injection or drainage. Fundi not examined. ENT: Hearing grossly normal. Nose without bleeding or purulent drainage. Throat without visible erythema, exudates, masses, or lesions. NECK: She has severe torticollis to the left and is unable to move her head independently, Unable to palpate neck. CARDIOVASCULAR: Regular rate and rhythm without murmurs, gallops, or rubs. No JVD. Peripheral pulses symmetric. RESPIRATORY/CHEST: Symmetric, unlabored respirations. Clear to auscultation. Breath sounds equal bilaterally. No wheezes, rales, or rhonchi. GASTROINTESTINAL: Abdomen soft, non-tender, nondistended. Scaphoid No hepato- splenomegaly, or palpable masses. No guarding. Bowel sounds present. GENITOURINARY: Without palpable bladder distension. MUSCULOSKELETAL: She has changes noted to her joints from rheumatoid arthritis. Extremities without clubbing, cyanosis, or edema. No joint tenderness or effusion noted. No calf tenderness. No mottling or clubbing. LYMPHATICS: No palpable cervical or supraclavicular adenopathy. NEUROLOGICAL: Awake and alert. She attempts to speak, but her voice is soft and she is difficult to understand. She is able to follow commands to the limits of her neurologic capacity will her toes move her feet. She is unable to move either arm. Both arms are flaccid PSYCHIATRIC: No obvious anxiety/depression. no apparent hallucinations or other psychotic thought process. (Zuleyka Mariee) Diagnostic Tests Laboratory Laboratory Tests Test 08/26/16 08/27/16 18:28 06:22 White Blood Count 7.5 TH/MM3 6.7 TH/MM3 (4.0-11.0) (4.0-11.0) Red Blood Count 3.34 MIL/MM3 3.23 MIL/MM3 (4.00-5.30) (4.00-5.30) Hemoglobin 11.7 GM/DL 11.1 GM/DL (11.6-15.3) (11.6-15.3) Hematocrit 33.2 % 32.5 % (35.0-46.0) (35.0-46.0) Mean Corpuscular Volume 99.2 FL 100.5 FL (80.0-100.0) (80.0-100.0) Mean Corpuscular Hemoglobin 35.1 PG 34.4 PG (27.0-34.0) (27.0-34.0) Mean Corpuscular Hemoglobin 35.4 % 34.2 % Concent (32.0-36.0) (32.0-36.0) Red Cell Distribution Width 14.5 % 14.8 % (11.6-17.2) (11.6-17.2) Platelet Count 324 TH/MM3 289 TH/MM3 (150-450) (150-450) Mean Platelet Volume 7.4 FL 7.5 FL (7.0-11.0) (7.0-11.0) Neutrophils (%) (Auto) 56.8 % 46.4 % (16.0-70.0) (16.0-70.0) Lymphocytes (%) (Auto) 32.7 % 42.1 % (9.0-44.0) (9.0-44.0) Monocytes (%) (Auto) 8.0 % (0.0-8.0) 9.0 % (0.0-8.0) Eosinophils (%) (Auto) 1.9 % (0.0-4.0) 2.1 % (0.0-4.0) Basophils (%) (Auto) 0.6 % (0.0-2.0) 0.4 % (0.0-2.0) Neutrophils # (Auto) 4.2 TH/MM3 3.1 TH/MM3 (1.8-7.7) (1.8-7.7) Lymphocytes # (Auto) 2.4 TH/MM3 2.8 TH/MM3 (1.0-4.8) (1.0-4.8) Monocytes # (Auto) 0.6 TH/MM3 0.6 TH/MM3 (0-0.9) (0-0.9) Eosinophils # (Auto) 0.1 TH/MM3 0.1 TH/MM3 (0-0.4) (0-0.4) Basophils # (Auto) 0.0 TH/MM3 0.0 TH/MM3 (0-0.2) (0-0.2) CBC Comment DIFF FINAL DIFF FINAL Differential Comment Prothrombin Time 12.2 SEC (9.8-11.6) Prothromb Time International 1.1 RATIO Ratio Activated Partial 28.7 SEC Thromboplast Time (24.3-30.1) Sodium Level 142 MEQ/L 144 MEQ/L (136-145) (136-145) Potassium Level 4.0 MEQ/L 3.8 MEQ/L (3.5-5.1) (3.5-5.1) Chloride Level 107 MEQ/L 108 MEQ/L (98-107) (98-107) Carbon Dioxide Level 26.1 MEQ/L 30.0 MEQ/L (21.0-32.0) (21.0-32.0) Anion Gap 9 MEQ/L (5-15) 6 MEQ/L (5-15) Blood Urea Nitrogen 23 MG/DL (7-18) 22 MG/DL (7-18) Creatinine 0.44 MG/DL 0.43 MG/DL (0.50-1.00) (0.50-1.00) Estimat Glomerular Filtration 142 ML/MIN 146 ML/MIN Rate (>89) (>89) Random Glucose 111 MG/DL 93 MG/DL (74-106) (74-106) Lactic Acid Level 1.6 mmol/L (0.4-2.0) Calcium Level 7.9 MG/DL 8.1 MG/DL (8.5-10.1) (8.5-10.1) Magnesium Level 2.0 MG/DL (1.5-2.5) Total Bilirubin 0.6 MG/DL (0.2-1.0) Aspartate Amino Transf 17 U/L (15-37) (AST/SGOT) Alanine Aminotransferase 7 U/L (10-53) (ALT/SGPT) Alkaline Phosphatase 80 U/L (45-117) Total Protein 5.5 GM/DL (6.4-8.2) Albumin 2.4 GM/DL (3.4-5.0) (Zuleyka Mariee) Result Diagram: 08/27/1662108/27/1622 Microbiology Microbiology Date/Time Procedure Status Source Growth 08/26/16 18:00 Aerobic Blood Culture - Preliminary Resulted Blood Peripheral NO GROWTH IN 3 DAYS 08/26/16 18:00 Anaerobic Blood Culture - Preliminary Resulted Blood Peripheral NO GROWTH IN 3 DAYS 08/26/16 18:28 Aerobic Blood Culture - Preliminary Resulted Blood Peripheral NO GROWTH IN 3 DAYS 08/26/16 18:28 Anaerobic Blood Culture - Preliminary Resulted Blood Peripheral NO GROWTH IN 3 DAYS 08/26/16 18:28 Gram Stain - Final Complete Wound Buttock 08/26/16 18:28 Wound Culture - Final Complete Wound Buttock HEAVY GROWTH NORMAL SKIN VALENTINA... Imaging Cervical Spine CT 08/26/167 Signed Impressions: Service Date/Time: Friday, August 26, 2016 18:36 - CONCLUSION: 1. Chronic appearing fracture through the upper dens with displacement of the fragment. 2. There are degenerative changes involving atlantoaxial joint normal likely secondary to pannus formation and rheumatoid arthritis with erosions and sclerosis. 3. Suboptimal exam due to the patient's kyphosis scoliosis and rotation. 4. Degenerative disc and degenerative joint changes. Enrique Damon MD Entire Spine MRI 08/26/16 0000 Signed Impressions: Service Date/Time: Friday, August 26, 2016 20:47 - CONCLUSION: 1. Marrow abnormalities involving the T11 and T12 vertebral bodies representing compression fracture deformities of indeterminate age. 2. Rounded marrow abnormalities in the T6 and T7 vertebral bodies with ring enhancement. These are nonspecific and could represent Schmorl's nodes versus possible metastasis. 3. Diffuse degenerative disc changes with scoliosis and kyphosis. Enrique Damon MD Cervical Spine MRI 08/26/16 0000 Signed Impressions: Service Date/Time: Friday, August 26, 2016 20:47 - CONCLUSION: 1. The known fracture deformity of the dens seen on CT is not well-visualized on this exam due to the rotation, kyphosis and scoliosis. 2. The other vertebral bodies appear intact. 3. Degenerative disc change greatest at the C4-5, C5-6 and C6-7 levels with disc osteophyte complexes with no definite mass effect on the cord. [facility] Assessment and Plan Disease Oriented Problem List: (1) Chronic pain Comment: severe arthritis with DDD to spine and neck (2) Rheumatoid arthritis (3) Parkinsons disease Comment: was on Duopa via J-Tube - continuous improvement. (4) C2 cervical fracture (5) Muscle weakness of extremity Symptom Scale: (1) Chronic pain 0-10 Scale: 0 Comment: denies at this time - However, she has severe degenerative disease as well as rheumatoid arthritis (2) Anxiety 0-10 Scale: 0 (denies at this time) Pertinent Non-Medical Issues Psychosocial: , has 4 children, son Pb is healthcare surrogate, [facility] Spiritual: Mosque beliefs Legal: It is reported from prior records that she has a living will. However, it is unavailable at this time. Will contact her son Pb and obtain the document Ethical issues impacting care: Important Contacts Pb Dubose, morris, Prognosis Prognosis is very guarded in light of her rather significant physical decline. She is quite frail and cachectic. Her current albumin level is 2.4 At this point, she is bedridden. She has a coccyx wound that is noted on records from the skilled facility. She is unable to feed herself or manage her needs. Per Neurosurgery "Unfortunately without any intervention, her present condition is considered life-threatening with the likelihood of progressive spinal cord compression and secondary respiratory complications" Code Status: Full Code Plan Decision Maker: Pb Jiang [phone] Code Status: Full code at this time. There is report of a living will Family Discussion: I was able to speak with her son Pb who indicates 'she is a stubborn woman'. Pb reiterates the importance of the Duopa that has been a very stabilizing drug for her and the 'only thing that has really worked.This was previously paid for by her medical insurance. She has been off of it since admission. Pb advises me that he had to warehouse order picker her things at [facility] and 'they didn't have any more termite technician beds.' I reviewed the findings of the Neurosurgeon and discussed that she is truly a hospice candidate.... "without any intervention, her present condition is considered life-threatening with the likelihood of progressive spinal cord compression and secondary respiratory complications." He states that after my discussion with her re: code status and hospice that she did not talk to him about it. He is in agreement with hospice for symptom management. However, he indicates that it is getting his mother to agree. He also wants to talk w his Uncle re: the plan of care so the family can provide a unified support position. Symptoms: Pain, Anxiety Palliative care phone number provided - will follow during hospital stay. ( Zuleyka Mariee) Attestation To help prompt me to consider important information that might be impacting today's encounter and assessment, information from prior notes written by myself or my colleagues may have been "brought forward" into today's note. My signature on this note, however, is an attestation that I personally performed the exam, history, and/or decision-making noted today, and, unless otherwise indicated, the interactions with patient, family, and staff as well as the review of records all occurred today. I also attest that the listed assessment and stated plan reflect my best clinical judgment today based on the combination of historical information, prior notes, and today's exam/ interactions. When time spent is documented, it refers only to time spent today by the signer, or if indicated, combined time spent today by collaborating physician/nurse practitioner. (Zuleyka Mariee) Collaborating MD Comments . Chart reviewed. Cased discussed with palliative care GROUND SUPPORT AGENT. Above GROUND SUPPORT AGENT note reviewed and I concur. . (Marciano Balderas MD) Zuleyka Mariee Aug 29, 2016 15:44 Marciano Balderas MD October 13, 2016 15:25
[2016-08-29] MEDS: ACETAMINOPHEN 325 MG TAB PO PRN (18:41)
[2016-08-29] MEDS ORDERED: ONDANSETRON HCL 4 MG/2 ML VIAL IV PUSH PRN (19:15)
[2016-08-29 20:00] VITALS: BP 139/94; PULSE 80; RESP 18; TEMP 96.3; O2SAT 98
[2016-08-29] MEDS: FAMOTIDINE 20 MG TAB PO SCH (21:00)
--- NOTE | 2016-08-29 23:58 | HHI.NSPN ---
Exam Results Vital Signs Date Time Temp Pulse Resp B/P Pulse Ox O2 Delivery O2 Flow Rate FiO2 08/29/16 20:00 96.3 80 18 139/94 98 08/26/16 18:00 Room Air Bertram Griffin MD Aug 29, 2016 23:58
[2016-08-30] VITALS: BP 112/75; PULSE 80; RESP 17; TEMP 96.4; O2SAT 98
--- NOTE | 2016-08-30 00:26 | HHI.NSPN ---
History Chief Complaint: no complaint Interval History 66-year-old female with history of Parkinson's disease, cervical dystonia, pulmonary fibrosis, hypertension. Patient apparently fell approximately 3 months ago and was seen at [facility] with diagnosis of chronic versus acute C2 fracture for which she was transferred to [facility] for further treatment. The patient was apparently discharged to custodial facility and at that time was able to ambulate with a walker up until a couple weeks ago when she apparently again lost control of her motor function with quadriparesis. She apparently was seen by neurology yesterday as an outpatient and sent to the emergency room for further evaluation. The patient indicates that she has not been able to move her arms or legs significantly for a couple of weeks. She denies significant neck pain. Exam Results Vital Signs Date Time Temp Pulse Resp B/P Pulse Ox O2 Delivery O2 Flow Rate FiO2 08/29/16 20:00 96.3 80 18 139/94 98 08/26/16 18:00 Room Air Intake and Output 08/29/16 08/29/16 08/30/16 08:00 16:00 00:00 Intake Total 100 ml 120 ml Output Total 150 ml Balance -50 ml 120 ml Physical Examination Frail, cachectic-appearing female, calm, no apparent distress. Respirations somewhat shallow, clear Cardiac regular Awake. Speech is difficult to understand due to very soft voice. response to simple questions and follows some commands She indicates positive sensation to light touch all extremities Trace movement distal lower extremities. No upper extremity motor function Medical Decision Making Impression and Plan Impression: 1. Parkinson's disease 2. Cervical dystonia 3. C1-C2 rotational subluxation and combination with chronic appearing C2 fracture creates rather severe spinal cord compression at the C1 level. There appears to be significant increased signal intensity within the spinal cord at the C1 level on MRI. Plan: Palliative care notes reviewed. It is very difficult to communicate with the patient due to her soft speech and her difficulty responding. I have explained to the patient the severity of the cervical spine abnormality and the options of observation and comfort measures only versus surgical intervention. Prognosis for significant recovery of motor function with surgical decompression is likely relatively well at this point, given her near total quadriplegia for at least the past couple of weeks. Palliative care continuing to work with the patient and family in regards to treatment. Bertram Griffin MD Aug 30, 2016 00:26
[2016-08-30 04:00] VITALS: BP 127/92; PULSE 71; RESP 18; TEMP 96.3; O2SAT 99
[2016-08-30] MEDS: LEVODOPA/CARBIDOPA 1 TAB TABCR PO SCH ×3 (06:00→21:54)
[2016-08-30 08:00] VITALS: BP 130/78; PULSE 71; RESP 20; TEMP 96; O2SAT 100
[2016-08-30] MEDS: TOLTERODINE TARTRATE 2 MG CAP LA PO SCH (09:00)
[2016-08-30] MEDS: ENOXAPARIN SODIUM 40 MG/0.4 ML SYRINGE SQ SCH (09:00)
[2016-08-30] MEDS: CALCIUM CARBONATE 1.25 GM (CA 500 MG) TAB PO SCH (09:42)
[2016-08-30] MEDS: ZINC SULFATE 220 MG CAP PO SCH (09:42)
[2016-08-30] MEDS: ASCORBIC ACID 500 MG TAB PO SCH (09:42)
[2016-08-30] MEDS: ACETAMINOPHEN 325 MG TAB PO PRN (09:48)
[2016-08-30 12:00] VITALS: BP 114/77; PULSE 79; RESP 20; TEMP 95.4; O2SAT 100
--- NOTE | 2016-08-30 14:32 | HHI.PR ---
Subjective Remarks The patient denied any pain. She says she was breathing comfortably. She seemed interested in going back to her rehabilitation facility. Her family was at the bedside. Discussed with nursing. Objective Vitals Vital Signs Date Time Temp Pulse Resp B/P Pulse Ox O2 Delivery O2 Flow Rate FiO2 08/30/16 12:00 95.4 79 20 114/77 100 08/30/16 08:00 96.0 71 20 130/78 100 08/30/16 04:00 96.3 71 18 127/92 99 08/30/16 00:00 96.4 80 17 112/75 98 08/29/16 20:00 96.3 80 18 139/94 98 08/29/16 20:00 20 I/O 08/29/16 08/29/16 08/29/16 08/30/16 08/30/16 08/30/16 07:00 15:00 23:00 07:00 15:00 23:00 Intake Total 100 ml 120 ml 0 ml 240 ml Output Total 150 ml Balance -50 ml 120 ml 0 ml 240 ml Intake Oral 100 ml 120 ml 0 ml 240 ml Output Urine Total 150 ml # Voids 1 2 1 2 # Bowel Movements 1 2 1 0 Result Diagram: 08/27/16 0622 08/27/16621 Imaging Last Impressions Cervical Spine CT 08/26/161816 Signed Impressions: Service Date/Time: Friday, August 26, 2016 18:36 - CONCLUSION: 1. Chronic appearing fracture through the upper dens with displacement of the fragment. 2. There are degenerative changes involving atlantoaxial joint normal likely secondary to pannus formation and rheumatoid arthritis with erosions and sclerosis. 3. Suboptimal exam due to the patient's kyphosis scoliosis and rotation. 4. Degenerative disc and degenerative joint changes. Enrique Damon MD Entire Spine MRI 08/26/16 0000 Signed Impressions: Service Date/Time: Friday, August 26, 2016 20:47 - CONCLUSION: 1. Marrow abnormalities involving the T11 and T12 vertebral bodies representing compression fracture deformities of indeterminate age. 2. Rounded marrow abnormalities in the T6 and T7 vertebral bodies with ring enhancement. These are nonspecific and could represent Schmorl's nodes versus possible metastasis. 3. Diffuse degenerative disc changes with scoliosis and kyphosis. Enrique Damon MD Cervical Spine MRI 08/26/16 0000 Signed Impressions: Service Date/Time: Friday, August 26, 2016 20:47 - CONCLUSION: 1. The known fracture deformity of the dens seen on CT is not well-visualized on this exam due to the rotation, kyphosis and scoliosis. 2. The other vertebral bodies appear intact. 3. Degenerative disc change greatest at the C4-5, C5-6 and C6-7 levels with disc osteophyte complexes with no definite mass effect on the cord. Enrique Damon MD Objective Remarks GENERAL: Cachectic and frail looking female. Appears much older than stated age. HEENT: NC, AT. CARDIOVASCULAR: Normal rate and regular rhythm without murmurs, gallops, or rubs. RESPIRATORY: Breath sounds equal and clear to auscultation bilaterally. GASTROINTESTINAL: Abdomen soft, non-tender, non-distended. Normal active bowel sounds MUSCULOSKELETAL: Extremities without cyanosis, or edema. NEURO: Alert & Oriented. Very difficult to understand speech. Very difficult to get words out. PSYCH: Calm. Medications and IVs Current Medications Medications (Trade) Dose Ordered Sig/Judson Route Start Time Stop Time Status Last Admin (NS Flush) 2 ml UNSCH PRN IV FLUSH 08/26/16 22:15 (NS Flush) 2 ml BID IV FLUSH 08/27/16 09:00 08/29/16 22:16 (Narcan Inj) 0.4 mg UNSCH PRN IV 08/26/16 22:15 (Tylenol) 650 mg Q6H PRN PO 08/26/16 22:15 08/30/16 09:48 (Vitamin C) 500 mg DAILY PO 08/27/16 09:00 08/30/16 09:42 (Dulcolax Ec) 5 mg DAILY PRN PO 08/26/16 22:15 (Oscal) 1,000 mg DAILY PO 08/27/16 09:00 08/30/16 09:42 (Valium) 2 mg BID PRN PO 08/26/16 22:15 (Colace) 100 mg DAILY PRN PO 08/26/16 22:15 (Pepcid) 40 mg HS PO 08/27/16 21:00 08/27/16 21:44 ([place] 5-325 Mg) 1 tab Q12HR PRN PO 08/26/16 22:15 (Zinc Sulfate) 220 mg DAILY PO 08/27/16 09:00 08/30/16 09:42 Patient Own Medication PT OWN MED: Suspensi... Q16H J-TUBE 08/27/16 05:00 Hold (Detrol La) 2 mg DAILY PO 08/27/16 09:00 08/29/16 09:40 (Lovenox Inj) 40 mg Q24H SQ 08/27/16 09:00 08/29/16 09:40 Patient Own Medication PT OWN MED: SINEMET... HS PO 08/27/16 21:00 Hold (Sinemet Cr 50-200 Mg) 3 tab Q8HR PO 08/28/16 14:00 08/30/16 13:33 (Sinemet Cr 50-200 Mg) 1 tab Q4H PRN PO 08/28/16 14:00 (Zofran Inj) 4 mg Q6H PRN IV PUSH 08/29/16 19:15 A/P Assessment and Plan 66-year-old female patient with a past medical history which includes pulmonary fibrosis, cervical dystonia, spasmodic torticollis, Parkinson's disease rheumatoid arthritis and hypertension. Patient sustained a fall 3 months ago, and was seen at [facility], and was transported to [facility]. At that time the patient was found to have a C2 fracture which was unclear if it was chronic or acute. At discharge from the hospital 2 weeks ago the patient was able to move all limbs and transfer to rehabilitation walking with a walker. Then 2 weeks ago patient had "another spell", and can't move her arms or legs. Worsening neurological deficit/quadriparesis: C-spine CT reveals Chronic appearing fracture through the upper dens with displacement of the fragment; degenerative changes involving atlantoaxial joint normal likely secondary to pannus formation and rheumatoid arthritis with erosions and sclerosis. C-spine MRI reveals dependent fracture deformity of the dens seen in CT is not well visualized on this exam due to rotation kyphosis and scoliosis. The vertebral bodies appear intact. Degenerative disc change in greatest at C4 to C5, CA 5 to C6 and C6 to C7 levels with disc osteophyte complexes with no definitive mass effect on the cord. - Neurosurgery evaluated the patient, she is a very poor surgical candidate at risk for worsening status including respiratory failure. Palliative care has been consulted. - Palliative care to follow up regarding goals of care. Poor prognosis. Parkinson's Disease with Cervical Dystonia, Intractable Neck Pain/Spasms: chronic, the patient has a Carbidopa-Levodopa infusion pump however unable to be restarted as no one is available to bring pump medications into hospital. -neurology consulted, Dr. Haney does not recommend restarting medications at this time with no Parkinsonian feature including tremor/rigidity -patient very adamant about restarting her medications, This was restarted by previous hospitalist. -PT/OT/ST. Case management assisting with getting pt back to SNF when appropriate. Rheumatoid Arthritis: chronic, continue patient's Celebrex. Pulmonary Fibrosis: O2 as needed. Patient stable on room air. DVT Prophylaxis: SCDs and Lovenox Enrique Lopes DO Aug 30, 2016 14:32
[2016-08-30 16:00] VITALS: BP 114/77; PULSE 79; RESP 20; TEMP 95.4; O2SAT 100
[2016-08-30 20:00] VITALS: BP 130/56; PULSE 78; RESP 18; TEMP 96.3; O2SAT 97
[2016-08-30] MEDS: FAMOTIDINE 20 MG TAB PO SCH (21:00)
[2016-08-30] MEDS: SODIUM CHLORIDE 0.9% FLUSH 10 ML FLUSH IV FLUSH SCH (21:59)
[2016-08-31 00:33] VITALS: BP 140/64; PULSE 84; RESP 18; TEMP 96.5; O2SAT 98
[2016-08-31 04:00] VITALS: BP 138/84; PULSE 81; RESP 18; TEMP 96.1; O2SAT 99
[2016-08-31] MEDS: LEVODOPA/CARBIDOPA 1 TAB TABCR PO SCH ×3 (06:00→23:06)
[2016-08-31] MEDS: TOLTERODINE TARTRATE 2 MG CAP LA PO SCH ×2 (09:50→10:00)
[2016-08-31] MEDS: CALCIUM CARBONATE 1.25 GM (CA 500 MG) TAB PO SCH ×2 (09:50→10:00)
[2016-08-31] MEDS: ASCORBIC ACID 500 MG TAB PO SCH ×2 (09:51→10:00)
[2016-08-31] MEDS: ENOXAPARIN SODIUM 40 MG/0.4 ML SYRINGE SQ SCH (09:51)
[2016-08-31] MEDS: ZINC SULFATE 220 MG CAP PO SCH ×2 (09:51→10:00)
[2016-08-31] MEDS: SODIUM CHLORIDE 0.9% FLUSH 10 ML FLUSH IV FLUSH SCH ×2 (09:53→23:06)
[2016-08-31 10:00] VITALS: BP 142/74; PULSE 78; RESP 24; TEMP 98.5; O2SAT 100
--- NOTE | 2016-08-31 11:19 | HHI.PR ---
Subjective Remarks The patient indicated that she did not like her pillow. She also said she wanted her chin held up. Otherwise it was hard to understand what she was saying. Discussed with nursing. Objective Vitals Vital Signs Date Time Temp Pulse Resp B/P Pulse Ox O2 Delivery O2 Flow Rate FiO2 08/31/16 10:00 98.5 78 24 142/74 100 08/31/16 04:00 96.1 81 18 138/84 99 08/31/16 00:33 96.5 84 18 140/64 98 08/30/16 20:00 96.3 78 18 130/56 97 08/30/16 16:00 95.4 79 20 114/77 100 08/30/16 12:00 95.4 79 20 114/77 100 Result Diagram: 08/27/1662108/27/16621 Imaging Last Impressions Cervical Spine CT 08/26/161816 Signed Impressions: Service Date/Time: Friday, August 26, 2016 18:36 - CONCLUSION: 1. Chronic appearing fracture through the upper dens with displacement of the fragment. 2. There are degenerative changes involving atlantoaxial joint normal likely secondary to pannus formation and rheumatoid arthritis with erosions and sclerosis. 3. Suboptimal exam due to the patient's kyphosis scoliosis and rotation. 4. Degenerative disc and degenerative joint changes. Enrique Damon MD Entire Spine MRI 08/26/16 0000 Signed Impressions: Service Date/Time: Friday, August 26, 2016 20:47 - CONCLUSION: 1. Marrow abnormalities involving the T11 and T12 vertebral bodies representing compression fracture deformities of indeterminate age. 2. Rounded marrow abnormalities in the T6 and T7 vertebral bodies with ring enhancement. These are nonspecific and could represent Schmorl's nodes versus possible metastasis. 3. Diffuse degenerative disc changes with scoliosis and kyphosis. Enrique Damon MD Cervical Spine MRI 08/26/16 0000 Signed Impressions: Service Date/Time: Friday, August 26, 2016 20:47 - CONCLUSION: 1. The known fracture deformity of the dens seen on CT is not well-visualized on this exam due to the rotation, kyphosis and scoliosis. 2. The other vertebral bodies appear intact. 3. Degenerative disc change greatest at the C4-5, C5-6 and C6-7 levels with disc osteophyte complexes with no definite mass effect on the cord. Enrique Damon MD Objective Remarks GENERAL: Cachectic and frail looking female. Appears much older than stated age. HEENT: NC, AT. CARDIOVASCULAR: Normal rate and regular rhythm without murmurs, gallops, or rubs. RESPIRATORY: Breath sounds equal and clear to auscultation bilaterally. GASTROINTESTINAL: Abdomen soft, non-tender, non-distended. Normal active bowel sounds MUSCULOSKELETAL: Extremities without cyanosis, or edema. NEURO: Alert & Oriented. Very difficult to understand speech. Very difficult to get words out. PSYCH: Calm. Medications and IVs Current Medications Medications (Trade) Dose Ordered Sig/Judson Route Start Time Stop Time Status Last Admin (NS Flush) 2 ml UNSCH PRN IV FLUSH 08/26/16 22:15 (NS Flush) 2 ml BID IV FLUSH 08/27/16 09:00 08/31/16 09:53 (Narcan Inj) 0.4 mg UNSCH PRN IV 08/26/16 22:15 (Tylenol) 650 mg Q6H PRN PO 08/26/16 22:15 08/30/16 09:48 (Vitamin C) 500 mg DAILY PO 08/27/16 09:00 08/31/16 09:51 (Dulcolax Ec) 5 mg DAILY PRN PO 08/26/16 22:15 (Oscal) 1,000 mg DAILY PO 08/27/16 09:00 08/31/16 09:50 (Valium) 2 mg BID PRN PO 08/26/16 22:15 (Colace) 100 mg DAILY PRN PO 08/26/16 22:15 (Pepcid) 40 mg HS PO 08/27/16 21:00 08/27/16 21:44 ([place] 5-325 Mg) 1 tab Q12HR PRN PO 08/26/16 22:15 (Zinc Sulfate) 220 mg DAILY PO 08/27/16 09:00 08/31/16 09:51 Patient Own Medication PT OWN MED: Suspensi... Q16H J-TUBE 08/27/16 05:00 Hold (Detrol La) 2 mg DAILY PO 08/27/16 09:00 08/31/16 09:50 (Lovenox Inj) 40 mg Q24H SQ 08/27/16 09:00 08/29/16 09:40 Patient Own Medication PT OWN MED: SINEMET... HS PO 08/27/16 21:00 Hold (Sinemet Cr 50-200 Mg) 1 tab Q4H PRN PO 08/28/16 14:00 (Zofran Inj) 4 mg Q6H PRN IV PUSH 08/29/16 19:15 (Sinemet Cr 50-200 Mg) 2 tab Q8HR PO 08/30/16 22:00 08/31/16 06:00 A/P Assessment and Plan 66-year-old female patient with a past medical history which includes pulmonary fibrosis, cervical dystonia, spasmodic torticollis, Parkinson's disease rheumatoid arthritis and hypertension. Patient sustained a fall 3 months ago, and was seen at [facility], and was transported to [facility]. At that time the patient was found to have a C2 fracture which was unclear if it was chronic or acute. At discharge from the hospital 2 weeks ago the patient was able to move all limbs and transfer to rehabilitation walking with a walker. Then 2 weeks ago patient had "another spell", and can't move her arms or legs. Worsening neurological deficit/quadriparesis: C-spine CT reveals Chronic appearing fracture through the upper dens with displacement of the fragment; degenerative changes involving atlantoaxial joint normal likely secondary to pannus formation and rheumatoid arthritis with erosions and sclerosis. C-spine MRI reveals dependent fracture deformity of the dens seen in CT is not well visualized on this exam due to rotation kyphosis and scoliosis. The vertebral bodies appear intact. Degenerative disc change in greatest at C4 to C5, CA 5 to C6 and C6 to C7 levels with disc osteophyte complexes with no definitive mass effect on the cord. - Neurosurgery evaluated the patient, she is a very poor surgical candidate at risk for worsening status including respiratory failure. Palliative care has been consulted. - Palliative care to follow up regarding goals of care. Poor prognosis. Parkinson's Disease with Cervical Dystonia, Intractable Neck Pain/Spasms: chronic, the patient has a Carbidopa-Levodopa infusion pump however unable to be restarted as no one is available to bring pump medications into hospital. -neurology consulted, Dr. Haney does not recommend restarting medications at this time with no Parkinsonian feature including tremor/rigidity -patient very adamant about restarting her medications, This was restarted by previous hospitalist. -PT/OT/ST. Case management assisting with getting pt back to SNF when appropriate. Awaiting further NS input. -pt has been refusing some of her medications. Will encourage to take. Rheumatoid Arthritis: chronic, continue patient's Celebrex. Pulmonary Fibrosis: O2 as needed. Patient stable on room air. DVT Prophylaxis: SCDs and Lovenox Discharge Planning To SNF once cleared by NS. Anticipate 1-2 days. Enrique Lopes DO Aug 31, 2016 11:19
[2016-08-31 12:30] VITALS: BP 124/87; PULSE 79; TEMP 95.7
[2016-08-31 16:00] VITALS: BP 128/88; PULSE 84; RESP 20; TEMP 95.9; O2SAT 95
[2016-08-31 20:00] VITALS: BP 114/69; PULSE 83; RESP 17; TEMP 96.2; O2SAT 97
[2016-08-31] MEDS: FAMOTIDINE 20 MG TAB PO SCH (21:00)
[2016-09-01] VITALS: BP 157/83; PULSE 82; RESP 17; TEMP 96.1; O2SAT 98
[2016-09-01 04:00] VITALS: BP 131/85; PULSE 79; RESP 16; TEMP 96.3; O2SAT 99
[2016-09-01] MEDS: LEVODOPA/CARBIDOPA 1 TAB TABCR PO SCH ×4 (05:15→20:46)
[2016-09-01 08:00] VITALS: BP 138/87; PULSE 75; RESP 20; TEMP 97.1; O2SAT 99
[2016-09-01] MEDS: ENOXAPARIN SODIUM 40 MG/0.4 ML SYRINGE SQ SCH (09:50)
[2016-09-01] MEDS: ZINC SULFATE 220 MG CAP PO SCH (09:51)
[2016-09-01] MEDS: SODIUM CHLORIDE 0.9% FLUSH 10 ML FLUSH IV FLUSH SCH (09:58)
--- NOTE | 2016-09-01 11:06 | HHI.PR ---
Subjective Remarks The patient had just seen the neurosurgery team. She does not seem interested in pursuing surgery. She did want a sip of juice, she said her throat was dry. Discussed with nursing. Objective Vitals Vital Signs Date Time Temp Pulse Resp B/P Pulse Ox O2 Delivery O2 Flow Rate FiO2 09/01/16 08:00 97.1 75 20 138/87 99 09/01/16 04:00 96.3 79 16 131/85 99 09/01/16 00:00 96.1 82 17 157/83 98 08/31/16 20:00 96.2 83 17 114/69 97 08/31/16 16:00 95.9 84 20 128/88 95 08/31/16 12:30 95.7 79 124/87 I/O 08/31/16 08/31/16 08/31/16 09/01/16 09/01/16 09/01/16 07:00 15:00 23:00 07:00 15:00 23:00 Intake Total 120 ml 120 ml Balance 120 ml 120 ml Intake Oral 120 ml 120 ml # Voids 2 2 1 2 # Bowel Movements 0 1 1 1 Imaging Last Impressions Cervical Spine CT 08/26/161816 Signed Impressions: Service Date/Time: Friday, August 26, 2016 18:36 - CONCLUSION: 1. Chronic appearing fracture through the upper dens with displacement of the fragment. 2. There are degenerative changes involving atlantoaxial joint normal likely secondary to pannus formation and rheumatoid arthritis with erosions and sclerosis. 3. Suboptimal exam due to the patient's kyphosis scoliosis and rotation. 4. Degenerative disc and degenerative joint changes. Enrique Damon MD Entire Spine MRI 08/26/16 0000 Signed Impressions: Service Date/Time: Friday, August 26, 2016 20:47 - CONCLUSION: 1. Marrow abnormalities involving the T11 and T12 vertebral bodies representing compression fracture deformities of indeterminate age. 2. Rounded marrow abnormalities in the T6 and T7 vertebral bodies with ring enhancement. These are nonspecific and could represent Schmorl's nodes versus possible metastasis. 3. Diffuse degenerative disc changes with scoliosis and kyphosis. Enrique Damon MD Cervical Spine MRI 08/26/16 0000 Signed Impressions: Service Date/Time: Friday, August 26, 2016 20:47 - CONCLUSION: 1. The known fracture deformity of the dens seen on CT is not well-visualized on this exam due to the rotation, kyphosis and scoliosis. 2. The other vertebral bodies appear intact. 3. Degenerative disc change greatest at the C4-5, C5-6 and C6-7 levels with disc osteophyte complexes with no definite mass effect on the cord. Enrique Damon MD Objective Remarks GENERAL: Cachectic and frail looking female. Appears much older than stated age. HEENT: NC, AT. CARDIOVASCULAR: Normal rate and regular rhythm without murmurs, gallops, or rubs. RESPIRATORY: Breath sounds equal and clear to auscultation bilaterally. GASTROINTESTINAL: Abdomen soft, non-tender, non-distended. Normal active bowel sounds MUSCULOSKELETAL: Extremities without cyanosis, or edema. NEURO: Alert & Oriented. Very difficult to understand speech. Very difficult to get words out. PSYCH: Calm. Medications and IVs Current Medications Medications (Trade) Dose Ordered Sig/Judson Route Start Time Stop Time Status Last Admin (NS Flush) 2 ml UNSCH PRN IV FLUSH 08/26/16 22:15 (NS Flush) 2 ml BID IV FLUSH 08/27/16 09:00 09/01/16 09:58 (Narcan Inj) 0.4 mg UNSCH PRN IV 08/26/16 22:15 (Tylenol) 650 mg Q6H PRN PO 08/26/16 22:15 08/30/16 09:48 (Vitamin C) 500 mg DAILY PO 08/27/16 09:00 08/30/16 09:42 (Dulcolax Ec) 5 mg DAILY PRN PO 08/26/16 22:15 (Oscal) 1,000 mg DAILY PO 08/27/16 09:00 08/30/16 09:42 (Valium) 2 mg BID PRN PO 08/26/16 22:15 (Colace) 100 mg DAILY PRN PO 08/26/16 22:15 (Pepcid) 40 mg HS PO 08/27/16 21:00 08/27/16 21:44 ([place] 5-325 Mg) 1 tab Q12HR PRN PO 08/26/16 22:15 (Zinc Sulfate) 220 mg DAILY PO 08/27/16 09:00 09/01/16 09:51 Patient Own Medication PT OWN MED: Suspensi... Q16H J-TUBE 4/12/17 05:00 Hold (Detrol La) 2 mg DAILY PO 08/27/16 09:00 08/29/16 09:40 (Lovenox Inj) 40 mg Q24H SQ 08/27/16 09:00 09/01/16 09:50 Patient Own Medication PT OWN MED: SINEMET... HS PO 08/27/16 21:00 Hold (Sinemet Cr 50-200 Mg) 1 tab Q4H PRN PO 08/28/16 14:00 09/01/16 05:15 (Zofran Inj) 4 mg Q6H PRN IV PUSH 08/29/16 19:15 (Sinemet Cr 50-200 Mg) 2 tab Q8HR PO 08/30/16 22:00 08/31/16 23:06 A/P Assessment and Plan 66-year-old female patient with a past medical history which includes pulmonary fibrosis, cervical dystonia, spasmodic torticollis, Parkinson's disease rheumatoid arthritis and hypertension. Patient sustained a fall 3 months ago, and was seen at [facility], and was transported to [facility]. At that time the patient was found to have a C2 fracture which was unclear if it was chronic or acute. At discharge from the hospital 2 weeks ago the patient was able to move all limbs and transfer to rehabilitation walking with a walker. Then 2 weeks ago patient had "another spell", and can't move her arms or legs. Worsening neurological deficit/quadriparesis: C-spine CT reveals Chronic appearing fracture through the upper dens with displacement of the fragment; degenerative changes involving atlantoaxial joint normal likely secondary to pannus formation and rheumatoid arthritis with erosions and sclerosis. C-spine MRI reveals dependent fracture deformity of the dens seen in CT is not well visualized on this exam due to rotation kyphosis and scoliosis. The vertebral bodies appear intact. Degenerative disc change in greatest at C4 to C5, CA 5 to C6 and C6 to C7 levels with disc osteophyte complexes with no definitive mass effect on the cord. - Neurosurgery evaluated the patient, she is a very poor surgical candidate at risk for worsening status including respiratory failure. Palliative care has been consulted. - Palliative care to follow up regarding goals of care. Poor prognosis. Parkinson's Disease with Cervical Dystonia, Intractable Neck Pain/Spasms: chronic, the patient has a Carbidopa-Levodopa infusion pump however unable to be restarted as no one is available to bring pump medications into hospital. -neurology consulted, Dr. Haney does not recommend restarting medications at this time with no Parkinsonian feature including tremor/rigidity -patient very adamant about restarting her medications, This was restarted by previous hospitalist. -PT/OT/ST. Case management assisting with getting pt back to SNF when appropriate. Awaiting further NS input. -pt has been refusing some of her medications. Will encourage to take. Rheumatoid Arthritis: chronic, continue patient's Celebrex. Pulmonary Fibrosis: O2 as needed. Patient stable on room air. PEG tube The patient has a PEG tube and the site appears possibly infected. - Wound culture and Gram stain pending. DVT Prophylaxis: SCDs and Lovenox Discharge Planning To SNF once cleared by NS. Anticipate 1-2 days. Enrique Lopes DO Sep 01, 2016 11:05
[2016-09-01 12:00] VITALS: BP 124/86; PULSE 86; RESP 20; TEMP 98.2; O2SAT 99
--- NOTE | 2016-09-01 12:00 | HHI.NSPN ---
History Chief Complaint: no complaint Interval History 66-year-old female with history of Parkinson's disease, cervical dystonia, pulmonary fibrosis, hypertension. Patient apparently fell approximately 3 months ago and was seen at [facility] with diagnosis of chronic versus acute C2 fracture for which she was transferred to [facility] for further treatment. The patient was apparently discharged to long term facility and at that time was able to ambulate with a walker up until a couple weeks ago when she apparently again lost control of her motor function with quadriparesis. She apparently was seen by neurology yesterday as an outpatient and sent to the emergency room for further evaluation. The patient indicates that she has not been able to move her arms or legs significantly for a couple of weeks. She denies significant neck pain. Exam Results Vital Signs Date Time Temp Pulse Resp B/P Pulse Ox O2 Delivery O2 Flow Rate FiO2 09/01/16 08:00 97.1 75 20 138/87 99 Intake and Output 08/31/16 08/31/16 09/01/16 08:00 16:00 00:00 Intake Total 120 ml Balance 120 ml Physical Examination Frail, cachectic-appearing female, calm, no apparent distress. Respirations somewhat shallow, clear Cardiac regular Awake. Speech is difficult to understand due to very soft voice. Responds to simple questions and follows some commands She indicates positive sensation to light touch all extremities No upper extremity motor function She moves her right greater than left foot with plantar and dorsiflexion approximately 2/5 consistently in response to command. Medical Decision Making Impression and Plan Impression: 1. Parkinson's disease 2. Cervical dystonia 3. C1-C2 rotational subluxation and combination with chronic appearing C2 fracture creates rather severe spinal cord compression at the C1 level. There appears to be significant increased signal intensity within the spinal cord at the C1 level on MRI. Plan: I spoke with the patient again in her room today at length. I explained to her the anatomical abnormalities in the cervical spine compressing the cervical cord and leading to severe quadriplegia. Her neurologic examination has not changed significantly compared to last week. It is very difficult to communicate with the patient due to her soft speech and her difficulty responding. I have tried to obtain a consistent response from the patient in regards to her desires for conservative care versus surgery. I have explained to the patient the severity of the cervical spine abnormality and the options of observation and comfort measures only versus surgical intervention. Prognosis for significant recovery of motor function with surgical decompression is likely relatively low at this point, given her near total quadriplegia for at least the past couple of weeks. She appears to consistently indicate that she does not desire surgery at this point, only conservative treatment. Discussed today with medicine service. Palliative care continuing to work with the patient and family in regards to treatment. Bertram Griffin MD Sep 01, 2016 12:00
--- NOTE | 2016-09-01 16:07 | HHI.HCPN ---
Reason for visit a. To assist with evaluation and management of symptoms including:pain, weakness b. To assist medical decision maker(s) with: better understanding of current medical conditions; weighing benefits/burdens of medical treatment options; making medical treatment decisions. Subjective/Interval History Ms Mendieta was seen today w her son and friend Sara at the bedside. They had been talking about hospice. She has come to accept that she is not going to regain her prior level of function. She is now having ongoing pain. She is not exhibiting any dyspnea but it can be anticipated with further decline. She is able to manage soft foods and thin liquids but is not eating enough. Vital signs are stable. She is remains alert and oriented and able to direct her care. Prior to the hospitalization 3 months ago after a fall w findings of a C2 fracture, she was walking independently, able to feed her self and mange her ADL 's. She used a walker due the severity of her scoliois and kyphosis and resulting torticollis. After the fall she was till ambulating but 'had a spell' resulting her her quadriplegia At this time, she remains a FULL CODE at her request although her son is understanding. Advance Directives Living Will: Completed, but not made available Advance Directive Specifics Health Care Surrogate(s): Pb Avalos, son, Objective Vital Signs Date Time Temp Pulse Resp B/P Pulse Ox O2 Delivery O2 Flow Rate FiO2 09/01/16 12:00 98.2 86 20 124/86 99 09/01/16 08:00 97.1 75 20 138/87 99 09/01/16 04:00 96.3 79 16 131/85 99 09/01/16 00:00 96.1 82 17 157/83 98 08/31/16 20:00 96.2 83 17 114/69 97 08/31/16 16:00 95.9 84 20 128/88 95 Intake & Output 09/01/16 09/01/16 07:00 19:00 Intake Total 120 ml 50 ml Balance 120 ml 50 ml Intake Oral 120 ml 50 ml # Voids 2 # Bowel Movements 1 Physical Exam CONSTITUTIONAL/GENERAL: This is an very frail and cachectic woman, in no apparent distress. TUBES/LINES/DRAINS: J-tube to midline abdomen SKIN: She has a patchy blister type rash to her right upper thigh. She has a significant bruise to her left fatima area. It is reported that she has a coccyx wound, skin is very dry HEAD: Atraumatic. Normocephalic. EYES: Pupils equal and round and reactive. Extraocular motions intact. No scleral icterus. No injection or drainage. Fundi not examined. ENT: Hearing grossly normal. Nose without bleeding or purulent drainage. Throat without visible erythema, exudates, masses, or lesions. NECK: She has severe torticollis to the left and is unable to move her head independently, Unable to palpate neck. CARDIOVASCULAR: Regular rate and rhythm without murmurs, gallops, or rubs. No JVD. Peripheral pulses symmetric. RESPIRATORY/CHEST: Symmetric, unlabored respirations. Clear to auscultation. Breath sounds equal bilaterally. No wheezes, rales, or rhonchi. GASTROINTESTINAL: Abdomen soft, non-tender, nondistended. Scaphoid No hepato- splenomegaly, or palpable masses. No guarding. Bowel sounds present. GENITOURINARY: Without palpable bladder distension. MUSCULOSKELETAL: She has changes noted to her joints from rheumatoid arthritis. Extremities without clubbing, cyanosis, or edema. No joint tenderness or effusion noted. No calf tenderness. No mottling or clubbing. LYMPHATICS: No palpable cervical or supraclavicular adenopathy. NEUROLOGICAL: Awake and alert. She attempts to speak, but her voice is soft and she is difficult to understand. She is able to follow commands to the limits of her neurologic capacity will her toes move her feet. She is unable to move either arm. Both arms are flaccid PSYCHIATRIC: No obvious anxiety/depression. no apparent hallucinations or other psychotic thought process. Diagnostic Tests Laboratory no current labs Microbiology no current micro Imaging no current imaging Assessment and Plan Disease Oriented Problem List: (1) Chronic pain Comment: severe arthritis with DDD to spine and neck (2) Rheumatoid arthritis (3) Parkinsons disease Comment: was on Duopa via J-Tube - continuous improvement. now on Sinemet (4) C2 cervical fracture (5) Muscle weakness of extremity Symptom Scale: (1) Chronic pain 0-10 Scale: 7 Comment: states a 7 at this time - she has severe degenerative disease as well as rheumatoid arthritis (2) Anxiety 0-10 Scale: 0 (denies at this time) Pertinent Non-Medical Issues Psychosocial: , has 4 children, son Pb is healthcare surrogate, lived in care home facility Spiritual: [employer] beliefs Legal: It is reported from prior records that she has a living will. However, it is unavailable at this time. Will contact her son Pb and obtain the document Ethical issues impacting care: Important Contacts morris Villar, Sara - friend of patient and family [phone] Prognosis Prognosis is very guarded in light of her rather significant physical decline. She is quite frail and cachectic. Her current albumin level is 2.4 At this point, she is bedridden. She has a coccyx wound that is noted on records from the skilled facility. She is unable to feed herself or manage her needs. Per Neurosurgery "Unfortunately without any intervention, her present condition is considered life-threatening with the likelihood of progressive spinal cord compression and secondary respiratory complications" Code Status: Full Code Plan Decision Maker: Pb Jiang [phone] Code Status: Full code at this time. There is report of a living will Family Discussion: I was able to speak to the patient, her son and a close friend who were all very supportive of the patient. They had been talking about hospice prior to my arrival. Further clarified goals of care as comfort - and she a agreeable to hospice. Hospice consult placed - plan for care center then possibly to SNF. Symptoms: Pain, Anxiety Palliative care phone number provided - will follow during hospital stay. Attestation To help prompt me to consider important information that might be impacting today's encounter and assessment, information from prior notes written by myself or my colleagues may have been "brought forward" into today's note. My signature on this note, however, is an attestation that I personally performed the exam, history, and/or decision-making noted today, and, unless otherwise indicated, the interactions with patient, family, and staff as well as the review of records all occurred today. I also attest that the listed assessment and stated plan reflect my best clinical judgment today based on the combination of historical information, prior notes, and today's exam/ interactions. When time spent is documented, it refers only to time spent today by the signer, or if indicated, combined time spent today by collaborating physician/nurse practitioner. Zuleyka Mariee Sep 01, 2016 16:07
[2016-09-01] MEDS: ACETAMINOPHEN 325 MG TAB PO PRN (17:11)
--- NOTE | 2016-09-01 18:05 | HHI.DCPOC ---
Discharge Care Plan Diagnosis: (1) C2 cervical fracture (2) Parkinsons disease (3) Cervical dystonia (4) Cervical spondylosis without myelopathy Goals to Promote Your Health * To prevent worsening of your condition and complications * To maintain your health at the optimal level Directions to Meet Your Goals Take your medications as prescribed Follow your dietary instruction Follow activity as directed Keep your appointments as scheduled Take your immunizations and boosters as scheduled If your symptoms worsen call your PCP, if no PCP go to Urgent Care Center or Emergency Room Smoking is Dangerous to Your Health. Avoid second hand smoke Call the 24-hour hour crisis hotline for domestic abuse at Enrique Lopes DO Sep 01, 2016 18:05
--- NOTE | 2016-09-01 18:20 | HHI.DS ---
Discharge Summary Admission Date Aug 27, 2016 at 10:21 Discharge Date: Sep 01, 2016 Admitting Diagnosis New upper and lower Extremity weakness/Parkinsons (1) Cervical dystonia ICD Code: G24.3 (2) Cervical spondylosis without myelopathy ICD Code: M47.812 Diagnosis: Principal (3) C2 cervical fracture ICD Code: S12.100A (4) Parkinsons disease ICD Code: G20 Diagnosis: Principal (5) Pulmonary fibrosis ICD Code: J84.10 Procedures None. Brief History - From Admission This a 66-year-old female patient with a past medical history which includes pulmonary fibrosis, cervical dystonia, spasmodic torticollis, Parkinson's disease rheumatoid arthritis and hypertension. Patient sustained a fall 3 months ago, and was seen at [facility], and was transported to [facility]. At that time the patient was found to have a C2 fracture which was unclear if it was chronic or acute. At discharge from the hospital 2 weeks ago the patient was able to move all limbs and transfer to rehabilitation walking with a walker. Then 2 weeks ago patient had a "another spell", and can't move her arms or legs. Patient was evaluated by Dr. Leon and the physician assistant professor of marine biology who recommended coming to the emergency department for further evaluation for her change in status, there is concern regarding spinal cord injury. Patient now has weakness of both upper extremities and is unable to grasp or left bilateral arms or legs against gravity. Patient is alert and oriented but is a very soft talker and slow to answer. Patient only able to provide a minimal verbal information therefore information gathered from patient as well as prior charting. Of note Patient has bowel or bladder incontinence. Patient has a duepa pump which is for her Parkinson's disease. Patient has a c-collar in place Imaging Last Impressions Cervical Spine CT 08/26/[id number] Signed Impressions: Service Date/Time: Friday, August 26, 2016 18:36 - CONCLUSION: 1. Chronic appearing fracture through the upper dens with displacement of the fragment. 2. There are degenerative changes involving atlantoaxial joint normal likely secondary to pannus formation and rheumatoid arthritis with erosions and sclerosis. 3. Suboptimal exam due to the patient's kyphosis scoliosis and rotation. 4. Degenerative disc and degenerative joint changes. Enrique Damon MD Entire Spine MRI 08/26/16 0000 Signed Impressions: Service Date/Time: Friday, August 26, 2016 20:47 - CONCLUSION: 1. Marrow abnormalities involving the T11 and T12 vertebral bodies representing compression fracture deformities of indeterminate age. 2. Rounded marrow abnormalities in the T6 and T7 vertebral bodies with ring enhancement. These are nonspecific and could represent Schmorl's nodes versus possible metastasis. 3. Diffuse degenerative disc changes with scoliosis and kyphosis. Enrique Damon MD Cervical Spine MRI 08/26/16 0000 Signed Impressions: Service Date/Time: Friday, August 26, 2016 20:47 - CONCLUSION: 1. The known fracture deformity of the dens seen on CT is not well-visualized on this exam due to the rotation, kyphosis and scoliosis. 2. The other vertebral bodies appear intact. 3. Degenerative disc change greatest at the C4-5, C5-6 and C6-7 levels with disc osteophyte complexes with no definite mass effect on the cord. Enrique Damon MD PE at Discharge GENERAL: Cachectic and frail looking female. Appears much older than stated age. HEENT: NC, AT. CARDIOVASCULAR: Normal rate and regular rhythm without murmurs, gallops, or rubs. RESPIRATORY: Breath sounds equal and clear to auscultation bilaterally. GASTROINTESTINAL: Abdomen soft, non-tender, non-distended. Normal active bowel sounds MUSCULOSKELETAL: Extremities without cyanosis, or edema. NEURO: Alert & Oriented. Very difficult to understand speech. Very difficult to get words out. PSYCH: Calm. Hospital Course C1-C2 rotational subluxation/ C2 fracture Patient sustained a fall 3 months ago. At that time the patient was found to have a C2 fracture which was unclear if it was chronic or acute. At discharge from the hospital 2 weeks ago the patient was able to move all limbs and transfer to rehabilitation, walking with a walker. Then 2 weeks ago patient had "another spell", and can't move her arms or legs. C-spine CT reveals Chronic appearing fracture through the upper dens with displacement of the fragment; degenerative changes involving atlantoaxial joint normal likely secondary to pannus formation and rheumatoid arthritis with erosions and sclerosis. C-spine MRI reveals dependent fracture deformity of the dens seen in CT is not well visualized on this exam due to rotation kyphosis and scoliosis; The vertebral bodies appear intact; Degenerative disc change in greatest at C4 to C5, CA 5 to C6 and C6 to C7 levels with disc osteophyte complexes with no definitive mass effect on the cord. Neurosurgery evaluated the patient and deemed her a very poor surgical candidate. Palliative was consulted. The pt was agreeable with being discharged to a hospice care center. Parkinson's disease with cervical dystonia The patient has a Carbidopa-Levodopa infusion pump, however, unable to be restarted as no one is available to bring pump medications into hospital. Neurology was consulted and did not recommend restarting medications at this time with no Parkinsonian features. The patient very adamant about restarting her medications so they were resumed. This was restarted by previous hospitalist. She worked with PT/OT/ST. Case management and palliative care were consulted. Pt Condition on Discharge: Stable Discharge Disposition: Hospice/Med Facility Discharge Time: > 30 minutes Discharge Instructions DIET: Follow Instructions for: As Tolerated, No Restrictions Speech Therapy-Diet Recommends: Mechanical Soft Activities you can perform: Weight Bearing as [place] Continued Medications: Acetaminophen (Tylenol) 325 Mg Tab 650 MG PO Q6H PRN PAIN 1-10 AND/OR FEVER >101F Ref [address] (Dulcolax DR) 5 Mg Tabdr 5 MG PO DAILY PRN CONSTIPATION #30 Ref 0 TAB Carbidopa-Levodopa Enteral Infusion (Duopa Enteral Infusion) 4.63-20 Mg/Ml Susp 4.63-20 MG J-TUBE DAILY Carbidopa-Levodopa ER (Sinemet Cr) 25-100 Mg Tab 1-2 TAB PO HS Parkinson Disease Mgmt #30 Ref 0 TAB Celecoxib (Celebrex) 200 Mg Cap 200 MG PO BID Pain Management Ref 0 CAP [place] Tar Extract Topical (Mg217 Psoriasis Multi-Symptom Topical) 2% Oint 1 APPLIC TOPICAL DAILY Docusate Sodium (Stool Softener) 100 Mg Cap 100 MG PO DAILY PRN CONSTIPATION Loperamide (Loperamide) 2 Mg Cap 2 MG PO Q8HR PRN DIARRHEA Ref 0 CAP Solifenacin (Vesicare) 5 Mg Tab 5 MG PO DAILY Urinary Symptom Managemen #30 Ref 0 TAB Discontinued Medications: Adalimumab 2-Pack Inj (Humira 2-Pack Inj) 40 Mg/0.8 Ml Syr 40 MG SQ WEEKLY #1 Ref 0 KIT Alendronate (Fosamax) 70 Mg Tab 70 MG PO WEEKLY Osteoporosis Treatment #4 Ref 0 TAB Ascorbic Acid (Vitamin C) 500 Mg Tab 500 MG PO DAILY Nutritional Supplement Ref 0 TAB Calcium (Oyster-Vishnu 500) 500 Mg Tab 1000 MG PO DAILY TAB Diazepam (Valium) 2 Mg Tab 2-4 MG PO BID PRN SPASMS Ref 0 TAB Famotidine (Famotidine) 20 Mg Tab 40 MG PO HS #60 Ref 0 TAB Hydrocodone-Acetaminophen ([place]) 5-325 mg Tab 1 TAB PO Q12HR PRN PAIN Ref 0 TAB Zinc Sulfate (Zinc Sulfate) 220 Mg Tab 220 MG PO DAILY Nutritional Supplement Ref 0 TAB Enrique Lopes DO Sep 01, 2016 18:20
== END 2016-09-01 20:55 | disposition hospice, inpatient (51) | DRG 91 ==
LOC: NEPE 17:46 → NEDA 22:02 → NEPGCP 08-27 03:28 → OBSVTOIN 08-27 10:21 → HOCB 08-28 15:07
PROVIDERS: ADMIT Hospitalist; ATTEND Hospitalist
DX: G95.29 Other cord compression (principal); G82.50 Quadriplegia, unspecified; R64 Cachexia; G20 Parkinson's disease; J84.10 Pulmonary fibrosis, unspecified; M48.02 Spinal stenosis, cervical region; Z68.1 Body mass index [BMI] 19.9 or less, adult; G24.3 Spasmodic torticollis; M47.812 Spondylosis without myelopathy or radiculopathy, cervical region; S12.100D Unspecified displaced fracture of second cervical vertebra, subsequent encounter for fracture with routine healing; M06.9 Rheumatoid arthritis, unspecified; I10 Essential (primary) hypertension; Z51.5 Encounter for palliative care; Z96.652 Presence of left artificial knee joint; Z87.891 Personal history of nicotine dependence; R15.9 Full incontinence of feces; R32 Unspecified urinary incontinence; Z91.81 History of falling; Z93.1 Gastrostomy status
CPT/HCPCS: 72125; 72156; 72158; 80048; 80053; 83605; 83735; 85025; 85610; 85730; 86403; 87040; 87070; 87205; A9579; G0378; J1650